=== PATIENT | male | born 1935 | race Caucasian/White ===

== ENCOUNTER → 2017-09-06 08:47 | Outpatient (CLI) | payer MEDICARE, OTHER, SELFPAY ==
--- NOTE | 2017-09-06 09:05 | RDU_ITS ---
Reason For Study: HYPERTENSION Right Renal Artery Left Renal Artery Right renal artery ostium Left renal artery ostium 186.0/33.0 214.0/35.4 RSV/EDV. PSV/EDV. Right renal artery proximal Left renal artery proximal PSV/EDV 200.0/44.0 PSV/EDV. 230.0/35.4 . Right renal artery mid 213.0/36.7 Left renal artery mid 200.0/36.7 PSV/EDV. PSV/EDV . Right renal artery distal Left renal artery distal 158.0/23.2 155.0/30.6 PSV/EDV. PSV/EDV. Right RAR 2.3. Left RAR 2.4. No turbulence noted. No turbulence noted. Right Renal Parenchyma Left Renal Parenchyma Upper Pole Medula 38.5/7.9 PSV/EDV. Left upper pole medulla 32.7/6.4 Right upper pole medulla EDR .21 . PSV/EDV . Right upper pole medulla R.I. .79 . Left upper pole medulla EDR .20 . Upper [employer] Cortx 24.4/6.1 PSV/EDV. Left upper pole medulla R.I. .80 . Right upper pole cortex EDR .25 . UP Cortex 27.2/7.6 PSV/EDV. Right upper pole cortex R.I. .75 . Left upper pole cortex EDR .28 . Right lower Pole medulla 33.0/7.9 Left upper pole cortex R.I. .72 . PSV/EDV . Left lower Pole medulla 33.0/8.3 Right lower pole medulla EDR .24 . PSV/EDV . Right lower pole medulla R.I. .76 . Left lower pole medulla EDR .25 . Lower Pole Cortex 18.9/5.8 PSV/EDV. Left lower pole medulla R.I. .75 . Right lower pole cortex EDR .31 . Lower Pole Cortx 35.1/7.6 PSV/EDV. Right lower pole cortex R.I. .69 . Left lower pole cortex EDR .22 . Right Renal Hilar Left lower pole cortex R.I. .78 . Right Hilar avg 41.3/8.3 PSV/EDV. Left Renal Hilar Right hilar acceleration time 66 LT Hilar avg 58.8/13.2 PSV/EDV . m/sec. Left hilar acceleration time 59 Right Renal Dimensions m/sec. Right kidney size 11.0 cm . Left Renal Dimensions Right cortical dimension 1.5 cm . Left kidney size 11.0 cm . Left cortical dimension 1.5 cm . Hypoechoic structure noted lt kidney measuring 2.1 x 2.1 cm. Aorta Proximal abdominal aorta 1.8 X 1.7 cm . Distal abdominal aorta 1.8 X 1.8 cm . Proximal abdominal aorta peak systolic velocity is 93.9 cm/sec . Distal abdominal aorta peak systolic velocity is 79.3 cm/sec . Interpretation Summary Dimensions of the intra-abdominal aorta appear normal, without evidence of aneurysmal dilatation. Right renal artery velocities are elevated. Left renal artery velocities are elevated. Acceleration times are normal bilaterally. Renal-aortic ratios are also bilaterally normal. No turbulent flow is noted in the renal arteries bilaterally. There is evidence of mild renal artery stenosis bilaterally, which does not appear to be hemodynamically significant. Renovascular resistance appears to be bilaterally elevated . Cortical dimensions are bilaterally normal. Kidneys appear normal in size bilaterally. A hypoechoic structure is noted in the left kidney, measuring 2.1 cm x 2.1 cm. This may represent a renal cyst. Clinical correlation is advised. Ordering Physician: Alison Aguirre Referring Physician: Alison Aguirre Performed By: Yari Hemphill RVT
== END ==
PROVIDERS: Family Provider Internal Medicine; PCP Internal Medicine; Visit Provider Internal Medicine
DX: I73.9 Peripheral vascular disease, unspecified (principal); I11.9 Hypertensive heart disease without heart failure
CPT/HCPCS: 93975

== ENCOUNTER → 2017-10-10 20:22 | Outpatient (CLI) | payer MEDICARE, OTHER, SELFPAY | PROVIDERS: Family Provider Internal Medicine; PCP Internal Medicine; Visit Provider Clinical Nurse Specialist Acute Care | DX: G47.33 Obstructive sleep apnea (adult) (pediatric) (principal) | CPT/HCPCS: 95811 ==

== ENCOUNTER → 2018-03-24 10:05 | Outpatient (CLI) | payer MEDICARE, OTHER, SELFPAY ==
--- NOTE | 2018-03-24 10:10 | RAD_ITS ---
STUDY: X-RAY - RIGHT KNEE REASON FOR EXAM: Male, 82 years old. Pain. TECHNIQUE: 4 view(s) of the knee. COMPARISON: None. FINDINGS: Normal visualized distal femur. Normal visualized proximal tibia and fibula. Normal proximal tibiofibular articulation. Normal medial femorotibial compartment. Normal lateral femorotibial compartment. There is moderate degenerative arthrosis of the patellofemoral articulation. 2 The soft tissue structures are unremarkable. RAD/Knee 4 or More Views IMPRESSION: Mild degenerative changes. No demonstrated fracture, dislocation, or destructive osseous lesion. Electronically Signed: Thanh Segal MD at 4:02 EST , Service support ,
== END ==
PROVIDERS: Family Provider Internal Medicine; PCP Internal Medicine; Referring Provider Internal Medicine; Visit Provider Internal Medicine
DX: M17.11 Unilateral primary osteoarthritis, right knee (principal)
CPT/HCPCS: 73564

== ENCOUNTER → 2018-03-27 10:32 | Outpatient (CLI) | payer MEDICARE, OTHER, SELFPAY | PROVIDERS: Family Provider Internal Medicine; PCP Internal Medicine; Referring Provider Nurse Practitioner Adult Health; Visit Provider Nurse Practitioner Adult Health | DX: R97.20 Elevated prostate specific antigen [PSA] (principal) | CPT/HCPCS: 36415; 84153 ==

== ENCOUNTER → 2018-06-26 12:47 | Outpatient (CLI) | payer MEDICARE, OTHER, SELFPAY ==
[2018-01-04 09:35] VITALS: BMI 32.1
--- NOTE | 2018-06-26 15:26 | PFTCOMP ---
COMPLETE PULMONARY FUNCTION TEST INTERPRETATION Brief HPI: Patient is an 82 year old male, currently under the care of myself, who presents to [facility] for complete pulmonary function tests secondary to diagnosis of COPD. Respiratory therapist reports good effort and reproducible results. Interpretation: Forced expiration spirometry shows a mild large airways obstructive ventilatory defect with an FEV1 of 87% predicted. There is no significant bronchodilator response by strict ATS criteria. Spirograms are of good quality and plateau slowly, indicating slowly emptying areas of the lungs. The respiratory flow volume loop shows decreased expiratory flow rates at high lung volumes consistent with small airways obstruction. Lung volumes by body plethysmography show a normal total lung capacity at 6.09 L, 96% predicted. All other lung volumes are within normal limits. Diffusion capacity by carbon monoxide is normal at 101% predicted. The airway resistance is elevated. Compared to previous pulmonary function tests from 06/09/2015, there has been no significant change. Impression: Relatively normal pulmonary function testing. There does appear to be a significant improvement in mid flows with bronchodilators, but this does not reach clinical significance by ATS criteria.
--- NOTE | 2018-06-26 15:29 | PFTCOMP_ITS ---
COMPLETE PULMONARY FUNCTION TEST INTERPRETATION Brief HPI: Patient is an 82 year old male, currently under the care of myself, who presents to [facility] for complete pulmonary function tests secondary to diagnosis of COPD. Respiratory therapist reports good effort and reproducible results. Interpretation: Forced expiration spirometry shows a mild large airways obstructive ventilatory defect with an FEV1 of 87% predicted. There is no significant bronchodilator response by strict ATS criteria. Spirograms are of good quality and plateau slowly, indicating slowly emptying areas of the lungs. The respiratory flow volume loop shows decreased expiratory flow rates at high lung volumes consistent with small airways obstruction. Lung volumes by body plethysmography show a normal total lung capacity at 6.09 L, 96% predicted. All other lung volumes are within normal limits. Diffusion capacity by carbon monoxide is normal at 101% predicted. The airway resistance is elevated. Compared to previous pulmonary function tests from 06/09/2015, there has been no significant change. Impression: Relatively normal pulmonary function testing. There does appear to be a significant improvement in mid flows with bronchodilators, but this does not re ach clinical significance by ATS criteria.
== END ==
PROVIDERS: Family Provider Internal Medicine; PCP Internal Medicine; Referring Provider Internal Medicine Critical Care Medicine; Visit Provider Internal Medicine Critical Care Medicine
DX: J44.9 Chronic obstructive pulmonary disease, unspecified (principal)
CPT/HCPCS: 94060; 94726; 94729

== ENCOUNTER 2018-07-10 09:30 | Outpatient (RCR) | payer MEDICARE, OTHER, SELFPAY ==
--- NOTE | 2018-06-02 07:56 | HP.PTEVAL_ITS ---
Patient's Visit Information AMANDA SHEEHAN is a 82 year old M referred to Physical Therapy by Alison Aguirre DO with a diagnosis of L knee OA. Date of Evaluation: 06/02/18 Physical Therapist: Walter Mckenzie DPT, OCS, CSCS - Visit Plan Frequency: 1x/Week Duration: 4-6 Weeks Plan: weekly x 4-6 to progress HEP for L knee OA: gave HS, quad, gastroc stretches, activity mod and nondamaging knee ROM today. next session NWB strength hip and knee and then progress to wB as tolerated. - Subjective Findings: L knee pain and stiffness that would make him cry. Had stem cell injections on Apr 25 and that bad pain left. Walking better but still needs cane due to medial sharp pain that makes him double up. It is stiff and he exercises with leg lifts at night and keeps it moving. No history of trauma in L knee but worked on concrete for years. 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 Worse when on it alot. Sleep is OK now but it was problematic prior to the injection especially with extension. Not employed. Can do basic aDLs abut painful at times. Uses cane since last 5 weeks due to pain. No falls. Injections helped 75%. - Pain L medial knee Pain Intensity (Out of 10): 0 Pain Intensity Range: 0, 7 Comment: 10 prior to injection. - Objective Walks with cane today I without antalgia, I without AD more antalgia. trasnfers I. Steps are reciprocal with railing and no increased pain ascending or descending today. L knee AROM 0-115 adn R knee is 0-128. HS and quad max tight, iTB mod tight, gastroc max tight to 0 DF. Patella stiff on L and painful to palpation medially under knee cap. reflexes 2/3 patella ezekiel chilles. Sensation in LE WNL to gross light touch. Strength LE ankles 5/5, L knee 4- ext adn 4 felxion with hesitation due to pain. R knee 5/5. Hips are 4- in rotations and abd/ext adn 4 in flexion R and 4- L. - Balance Scores Functional Gait Assessment Score: 26 % Disability: 13.3400 - Goals Goal 1:: patient feel 90% better overall and be I in approp ex to minimize future problems. Goal Time Frame: 4-6 Weeks Goal 2:: Patient have 0 instances of catching sharp pain in L knee that reequires use of cane. Goal Time Frame: 4-6 Weeks Goal 3:: Maintain abiliity to sleep at night without waking. 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 For Medicare and Medicare HMO plans, please review the plan of care and approve it. It will need to be FAXED BACK to us at [phone] for Medicare purposes. For Medicare only, by signing this I certify the plan of care. Please let me know if there are questions or concerns regarding this plan of care. Physician Signature: Dat e:
--- NOTE | 2018-07-10 09:47 | HP.PTDCSUM ---
HP - PT D/C Summary It has been my pleasure to treat AMANDA SHEEHAN under orders from Alison Aguirre DO, for the diagnosis of L knee OA for a total of 4 visit(s). Discharge Date: 07/10/18 Please see the following information for a summary of their discharge status. - Subjective Subjective: Dizzyness gone. Doing all exercises and limits WB exercises to 5-6 reps. Only problem is slight pain medial knee. Pain gets to 2/10 at times if walks alot. Saw doctor Tuesday and did not say much. Carries cane sometimes in case it starts to hurt but doing that less and less. - Pain L medial knee Pain Intensity (Out of 10): 0 - Overall Improvement % Improvement: 85 - Objective Objective/Function: Good 5/5 strength in knees adn Functional ROM. Patient happy with progress adn willing to continue on his own. - Goals Goal 1:: patient feel 90% better overall and be I in approp ex to minimize future problems. Goal Progress: Progressing Goal 2:: Patient have 0 instances of catching sharp pain in L knee that reequires use of cane. Goal Progress: Goal Met Goal 3:: Maintain abiliity to sleep at night without waking. Goal Progress: Goal Met Goal 4:: <50% disability on LEFS Goal Progress: 50%, 20% improved. - Plan Plan: D/C to HEP - D/C Information Discharge Comments: Doing well and will continue at home via HEP. Will contact doctor if pain worsens again. If there are questions or concerns regarding this patient's physical therapy, please feel free to call me at [phone]. Thank you for the referral of this patient. Sincerely, Walter Mckenzie, DPT, OCS, CSCS
== END 2018-07-10 19:00 | disposition home or self-care (01) ==
LOC: PT 09:30
PROVIDERS: Family Provider Internal Medicine; PCP Internal Medicine; Referring Provider Internal Medicine; Visit Provider Internal Medicine
DX: M17.12 Unilateral primary osteoarthritis, left knee (principal)
CPT/HCPCS: 97110; 97162; 97530

== ENCOUNTER → 2018-07-26 09:42 | Outpatient (CLI) | payer MEDICARE, OTHER, SELFPAY ==
[2018-07-05 09:01] VITALS: BMI 31.5
--- NOTE | 2018-07-26 09:53 | CT_ITS ---
STUDY: CTA OF THE BRAIN REASON FOR EXAM: Male, 82 years old. Vision loss. History of prior cerebral aneurysm repair. RADIATION DOSAGE (If Supplied By Facility): CTDIvol = ( 29.87 ) mGy, DLP = ( 1571.72 ) mGycm TECHNIQUE: CT angiography was performed with a multi-detector CT scanner. Data acquisition was obtained from the skull base through the vertex following intravenous administration of 100 IV Isovue 370. MIP images were reconstructed from the axial data set. Post-processing of the angiographic images was performed, with multiplanar reformation and 3D reconstruction. Individualized dose optimization techniques were used for this CT. COMPARISON: None. FINDINGS: A vascular/aneurysmal clip is seen in the left side of the [place]. The patient is status post left temporal parietal craniotomy. Normal bilateral petrous carotid arteries. There is calcified plaque formation of the right cavernous carotid artery, without a cross-sectional luminal stenosis. There is calcified plaque formation of the left cavernous carotid artery, without a cross-sectional luminal stenosis. Normal right A1 segments of the anterior cerebral artery. Normal left A1 segments of the anterior cerebral artery. Normal intact anterior communicating artery (ACOM). Normal bilateral A2 segments of the anterior cerebral arteries. Normal right M1 and M2 segments of the middle cerebral arteries, with a normal M1 bifurcation. Aneurysmal clip is seen at the level of the M2 branch of the left middle cerebral artery. There is attenuation of the middle cerebral artery branches in the region of the left sylvian fissure. This most likely is postoperative in nature. No recurrent aneurysm is seen. Normal right posterior communicating artery (PCOM). Normal left posterior communicating artery (PCOM). Normal bilateral vertebral arteries. Normal basilar artery with a normal basilar bifurcation. The visualized bilateral superior cerebellar (SCA) arteries are normal. Normal bilateral P1, P2 and visualized P3 segments of the posterior cerebral arteries. There is no demonstrated aneurysm of the [place]. Cerebral atrophy. A aneurysmal clip is seen in the [place] on the left side. 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 No acute abnormality is seen. Electronically Signed: Daniel Lott, at 10:53 EDT , Service support , STUDY: CTA NECK WITH CONTRAST REASON FOR EXAM: Male, 82 years old. Visual loss. RADIATION DOSAGE (If Supplied By Facility): CTDIvol = ( 29.87 ) mGy, DLP = ( 1571.72 ) mGycm TECHNIQUE: CT angiography with multi-detector data acquisition was performed from the aortic arch to the skull base following intravenous administration of 100 IV Isovue 370. MIP images were reconstructed from the axial data set. Post-processing of the angiographic images was performed, with multiplanar reformation and 3D reconstruction. Individualized dose optimization techniques were used for this CT. COMPARISON: None. FINDINGS: AORTIC ARCH: There is atherosclerotic calcific plaque formation of the aortic arch and great vessels arising from the aortic arch, without a hemodynamically significant stenosis. There is a normal origin of the brachiocephalic, left common carotid, and left subclavian arteries. RIGHT CAROTID ARTERIES: There is atherosclerotic plaque formation of the common carotid artery, but without a hemodynamically significant stenosis. Normal right common carotid bulb. There is mild atherosclerotic plaque formation of the origin of the right internal carotid artery with less than 50% cross sectional diameter stenosis. Normal visualized cervical portion of the right internal carotid artery. Normal origin of the right external carotid artery (ECA). LEFT CAROTID ARTERIES: There is atherosclerotic plaque formation of the common carotid artery, but without a hemodynamically significant stenosis. Normal left common carotid bulb. There is extensive atherosclerotic plaque formation of the origin of the left internal carotid artery with an estimated stenosis of greater than 70%. Normal visualized cervical portion of the left internal carotid artery. Normal origin of the left external carotid artery (ECA). VERTEBRAL ARTERIES: Normal bilateral vertebral arteries. 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 Electronically Signed: Daniel Lott, at 10:56 EDT , Service support ,
--- NOTE | 2018-07-26 09:53 | CT_ITS ---
STUDY: CTA OF THE BRAIN REASON FOR EXAM: Male, 82 years old. Vision loss. History of prior cerebral aneurysm repair. RADIATION DOSAGE (If Supplied By Facility): CTDIvol = ( 29.87 ) mGy, DLP = ( 1571.72 ) mGycm TECHNIQUE: CT angiography was performed with a multi-detector CT scanner. Data acquisition was obtained from the skull base through the vertex following intravenous administration of 100 IV Isovue 370. MIP images were reconstructed from the axial data set. Post-processing of the angiographic images was performed, with multiplanar reformation and 3D reconstruction. Individualized dose optimization techniques were used for this CT. COMPARISON: None. FINDINGS: A vascular/aneurysmal clip is seen in the left side of the [place]. The patient is status post left temporal parietal craniotomy. Normal bilateral petrous carotid arteries. There is calcified plaque formation of the right cavernous carotid artery, without a cross-sectional luminal stenosis. There is calcified plaque formation of the left cavernous carotid artery, without a cross-sectional luminal stenosis. Normal right A1 segments of the anterior cerebral artery. Normal left A1 segments of the anterior cerebral artery. Normal intact anterior communicating artery (ACOM). Normal bilateral A2 segments of the anterior cerebral arteries. Normal right M1 and M2 segments of the middle cerebral arteries, with a normal M1 bifurcation. Aneurysmal clip is seen at the level of the M2 branch of the left middle cerebral artery. There is attenuation of the middle cerebral artery branches in the region of the left sylvian fissure. This most likely is postoperative in nature. No recurrent aneurysm is seen. Normal right posterior communicating artery (PCOM). Normal left posterior communicating artery (PCOM). Normal bilateral vertebral arteries. Normal basilar artery with a normal basilar bifurcation. The visualized bilateral superior cerebellar (SCA) arteries are normal. Normal bilateral P1, P2 and visualized P3 segments of the posterior cerebral arteries. There is no demonstrated aneurysm of the [place]. Cerebral atrophy. A aneurysmal clip is seen in the [place] on the left side. 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 No acute abnormality is seen. Electronically Signed: Daniel Lott, at 10:53 EDT , Service support , STUDY: CTA NECK WITH CONTRAST REASON FOR EXAM: Male, 82 years old. Visual loss. RADIATION DOSAGE (If Supplied By Facility): CTDIvol = ( 29.87 ) mGy, DLP = ( 1571.72 ) mGycm TECHNIQUE: CT angiography with multi-detector data acquisition was performed from the aortic arch to the skull base following intravenous administration of 100 IV Isovue 370. MIP images were reconstructed from the axial data set. Post-processing of the angiographic images was performed, with multiplanar reformation and 3D reconstruction. Individualized dose optimization techniques were used for this CT. COMPARISON: None. FINDINGS: AORTIC ARCH: There is atherosclerotic calcific plaque formation of the aortic arch and great vessels arising from the aortic arch, without a hemodynamically significant stenosis. There is a normal origin of the brachiocephalic, left common carotid, and left subclavian arteries. RIGHT CAROTID ARTERIES: There is atherosclerotic plaque formation of the common carotid artery, but without a hemodynamically significant stenosis. Normal right common carotid bulb. There is mild atherosclerotic plaque formation of the origin of the right internal carotid artery with less than 50% cross sectional diameter stenosis. Normal visualized cervical portion of the right internal carotid artery. Normal origin of the right external carotid artery (ECA). LEFT CAROTID ARTERIES: There is atherosclerotic plaque formation of the common carotid artery, but without a hemodynamically significant stenosis. Normal left common carotid bulb. There is extensive atherosclerotic plaque formation of the origin of the left internal carotid artery with an estimated stenosis of greater than 70%. Normal visualized cervical portion of the left internal carotid artery. Normal origin of the left external carotid artery (ECA). VERTEBRAL ARTERIES: Normal bilateral vertebral arteries. 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 Electronically Signed: Daniel Lott, at 10:56 EDT , Service support ,
[2018-07-26 10:10] LABS: CREATININE FINGERSTICK 1.5 mg/dL (0.70-1.30)
[2018-07-26 10:26] LABS: Absolute Lymphocyte Count 1.12 X10^3/ul (0.83-4.51); Absolute Neutrophil Count 4.1 X10^3/uL (2.0-7.7); Basophil# 0.04 X10^3/uL; Basophil% 0.6 % (0-1); Eosinophil# 0.34 X10^3/uL; Eosinophils% 5.4 % (0-5); Hemoglobin 13.1 g/dl (13.0-16.5); Lymphocyte # 1.12 X10^3/ul (4.0); Lymphocyte % 17.7 % (19-41); Mean Corp Hgb Conc 34.5 g/gl (32-36); Mean Corpuscular Hgb 28.8 pg (27.0-32.0); Mean Corpuscular Volume 83.5 fL (80-94); Mean Platelet Vol. 8.9 fl (6.2-12.0); Monocyte# 0.75 X10^3/uL; Monocyte% 11.9 % (0-10); Neutrophil # 4.05 X10^3/uL (2.7-7.7); Neutrophil % 64.1 % (47-70); Platelet Count 236 K/mm3 (150-450); RBC Distribution Width CV 14.5 % (11.6-14.6); RBC Distribution Width SD 43.1 fl (35.1-43.9); Red Blood Count 4.55 M/mm3 (4.6-6.2); White Blood Count 6.3 K/mm3 (4.4-11.0)
[2018-07-26 10:28] LABS: POSITIVE COUNT NO; POSITIVE DIFFERENTIAL NO; POSITIVE MORPHOLOGY NO
[2018-07-26 10:47] LABS: ALB/GLOB Ratio 1.1 RATIO (0.9-2.4); AST(SGOT) 34 U/L (15-37); Alanine Aminotransfer ALT/SGPT 44 U/L (16-61); Albumin, Serum 3.9 g/dL (3.2-5.0); Alkaline Phosphatase 80 U/L (45-117); Anion Gap 5 (5-15); BUN 24 mg/dL (7-18); BUN/Creat Ratio 19.8 RATIO (10-20); Calcium,Total 8.9 mg/dL (8.5-10.1); Chloride 104 mmol/L (98-107); Creatinine, Serum 1.21 mg/dL (0.70-1.30); EST Glomerular Filtration Rate 61 mL/min (>60); Est Glom Filt Rate - Afr Amer 74 mL/min (>60); Ferritin 69 ng/mL (26-388); Globulin 3.4 g/dL (2.2-4.2); Glucose 105 mg/dL (74-106); Iron 69 ug/dL (65-175); Iron Binding Capacity,Total 276 ug/dL (250-450); Protein, Total 7.3 g/dL (6.4-8.2); Sodium Level 139 mmol/L (136-145); Thyroid Stim Hormone (TSH) 1.47 uIU/mL (0.358-3.74); Vitamin B12 642 pg/mL (211-911)
== END ==
PROVIDERS: Family Provider Internal Medicine; PCP Internal Medicine; Referring Provider Internal Medicine; Visit Provider Internal Medicine
DX: H54.7 Unspecified visual loss (principal); R53.83 Other fatigue; Z86.39 Personal history of other endocrine, nutritional and metabolic disease
CPT/HCPCS: 70496; 70498; 80053; 82607; 82728; 83540; 83550; 84443; 85025; Q9967

== ENCOUNTER → 2018-07-29 07:01 | Outpatient (CLI) | payer MEDICARE, OTHER, SELFPAY ==
[2018-07-05 09:01] VITALS: BMI 31.5
[2018-07-29 08:26] LABS: Erythrocyte Sedimentation Rate 7 mm/hr (0-20)
== END ==
PROVIDERS: Family Provider Internal Medicine; PCP Internal Medicine; Referring Provider Ophthalmology; Visit Provider Ophthalmology
DX: G45.3 Amaurosis fugax (principal)
CPT/HCPCS: 36415; 85652; 86140

== ENCOUNTER → 2018-08-10 13:52 | Outpatient (CLI) | payer MEDICARE, OTHER, SELFPAY ==
[2018-07-05 09:01] VITALS: BMI 31.5
--- NOTE | 2018-08-10 13:59 | ECHOD_ITS ---
Reason For Study: VISION LOSS Procedure This was a 2D Doppler, Color Flow transthoracic echocardiogram. Exam performed in department. Left Ventricle Normal size and thickness. Left ventricular systolic function is normal. The estimated ejection fraction is 60 %. Normal diastology for age. No regional wall motion abnormalities noted. Right Ventricle Normal RV size. Normal systolic function. Atria Normal left atrium. Normal right atrium. No doppler evidence for ASD. Bubble contrast study negative for right to left interatrial shunt. Mitral Valve There is mild mitral annular calcification. There is no mitral valve stenosis. Mild (1+) mitral valve insufficiency. Tricuspid Valve There is no tricuspid stenosis. Mild tricuspid valve insufficiency. Pulmonary artery systolic pressure is 35 mmHg. Aortic Valve Aortic sclerosis, no stenosis. There is no aortic stenosis. No aortic valve insufficiency. Pulmonic Valve There is no pulmonic valvular stenosis. Trivial pulmonic valve insufficiency. Great Vessels Normal aortic root. Pericardium/Pleural No pericardial effusion. Medication 22 gauge I.V. with prn adaptor inserted into right arm. Performed a rapid injection of agitated mix of 9 cc saline and 1cc air to assess for atrial septal defect. MMode/2D Measurements & Calculations LVIDd: 5.0 cm IVSd: 1.1 cm Ao root diam: 3.4 cm LVIDs: 3.5 cm LVPWd: 1.2 cm RVDd: 3.8 cm FS: 30.6 % LAV(MOD-bp): 48.9 ml LVAd ap4: 37.6 cm2 SV(MOD-sp4): 73.0 ml LAV(MOD-bp) Indexed: 22.5 ml/m2 EDV(MOD-sp4): 130.8 ml LAV(MOD-sp2): 44.6 ml EDV(sp4-el): 134.3 ml LAV(MOD-sp4): 49.9 ml LVAs ap4: 22.4 cm2 ESV(MOD-sp4): 57.7 ml ESV(sp4-el): 57.6 ml EF(MOD-sp4): 55.8 % EF(sp4-el): 57.1 % SV(sp4-el): 76.7 ml LA A4 area: 17.4 cm2 LA dimension(2D): 4.2 cm RA A4 area: 13.3 cm2 Time Measurements MV dec time: 0.24 sec Doppler Measurements & Calculations MV E max jake: 76.1 cm/sec Lat Peak E' Jake: 6.9 cm/sec Med Peak E' Jake: 6.5 cm/sec MV A max jake: 96.9 cm/sec E/E' lat: 11.0 E/E' med: 11.8 MV E/A: 0.79 Ao V2 max: 136.7 cm/sec LV V1 max: 107.6 cm/sec PA V2 max: 91.3 cm/sec Ao max P.5 mmHg LV V1 max P.6 mmHg PI end-d jake: 61.8 cm/sec TR max jake: 299.0 cm/sec TR max P.8 mmHg Interpretation Summary Left ventricular systolic function is normal. The estimated ejection fraction is 60 %. Normal diastology for age. No doppler evidence for ASD. Bubble contrast study negative for right to left interatrial shunt. Mild (1+) mitral valve insufficiency. Ordering Physician: Alison Aguirre Referring Physician: Alison Aguirre Performed By: Nilam Tillman, RDCS, RVT
== END ==
PROVIDERS: Family Provider Internal Medicine; PCP Internal Medicine; Referring Provider Internal Medicine; Visit Provider Internal Medicine
DX: H54.7 Unspecified visual loss (principal); R94.31 Abnormal electrocardiogram [ECG] [EKG]
CPT/HCPCS: 93306; A4216

== ENCOUNTER → 2019-01-15 20:00 | Outpatient (CLI) | payer MEDICARE, OTHER, SELFPAY ==
[2018-12-19 06:02] VITALS: BMI 31.2
== END ==
PROVIDERS: Family Provider Internal Medicine; PCP Internal Medicine; Referring Provider Internal Medicine Critical Care Medicine; Visit Provider Internal Medicine Critical Care Medicine
DX: G47.33 Obstructive sleep apnea (adult) (pediatric) (principal)
CPT/HCPCS: 95811

== ENCOUNTER → 2019-10-10 09:27 | Outpatient (CLI) | payer MEDICARE, OTHER, SELFPAY ==
[2019-09-12 09:20] VITALS: BMI 31.0
--- NOTE | 2019-10-11 12:05 | PFT ---
INTRODUCTION: The patient is an 84-year-old male that presents for pulmonary function studies secondary to a diagnosis of COPD. Respiratory therapy reports good patient effort. Bronchodilators were used during testing. INTERPRETATION: Forced expiration spirometry demonstrates no evidence of a large airways obstructive ventilatory defect. Although technically there was no significant response to aerosolized bronchodilators, the patient did have a rather robust mid flow response. Spirograms are of good quality and plateau gradually. Body plethysmography was performed and reveals lung volumes to be within normal limits. Diffusing capacity by single breath CO is also within normal limits. When compared to previous pulmonary function studies from June 2018, there has been a 21% reduction in DLCO. IMPRESSION: Grossly normal pulmonary function studies. There has been a reduction in DLCO since 2019, as noted above.
== END ==
PROVIDERS: PCP Internal Medicine; Referring Provider Nurse Practitioner Acute Care; Visit Provider Nurse Practitioner Acute Care
DX: J44.9 Chronic obstructive pulmonary disease, unspecified (principal)
CPT/HCPCS: 94060; 94726; 94729

== ENCOUNTER → 2019-10-19 10:21 | Outpatient (CLI) | payer MEDICARE, OTHER, SELFPAY ==
[2019-09-12 09:20] VITALS: BMI 31.0
[2019-10-19 11:51] VITALS: PULSE 69; PULSE 72; PULSE 77; PULSE 79; PULSE 80; PULSE 82; PULSE 96; O2SAT 93; O2SAT 94; O2SAT 95; O2SAT 96; O2SAT 97
--- NOTE | 2019-10-19 13:09 | WT_ITS ---
PSN 6 Minute Walk Test - 6 Minute Walk Test 6 Minute Walk Test: 6 Minute Walk Test PSN:6-Minute Walk Test Start: 10/19/19 11:51 Freq: Status: Active Protocol: [id number].[id number] Document 10/19/19 11:51 [facility] (Rec: 10/19/19 11:55 [facility] [id number]) 6 Minute Walk Test Date Performed 10/19/19 Time Performed 10:30 Height 5 ft 9 in Weight: 99.337 kg Weight in Pounds 219.[address]: Jennifer Francois Assistive device used: None Pre-test Oxygen Delivery Method Room Air Pulse Ox (%) 95 Pulse Rate (60-100 beats/min) 96 Dyspnea Ceci Scale (0-10) 1 1st minute Oxygen Delivery Method Room Air Pulse Ox (%) 94 Pulse Rate (60-100 beats/min) 72 Dyspnea Ceci Scale (0-10) 1 Number of Rests Taken 0 2nd minute Oxygen Delivery Method Room Air Pulse Ox (%) 93 Pulse Rate (60-100 beats/min) 77 Dyspnea Ceci Scale (0-10) 2 Number of Rests Taken 0 3rd minute Oxygen Delivery Method Room Air Pulse Ox (%) 94 Pulse Rate (60-100 beats/min) 79 Dyspnea Ceci Scale (0-10) 2 Number of Rests Taken 0 4th minute Oxygen Delivery Method Room Air Pulse Ox (%) 94 Pulse Rate (60-100 beats/min) 82 Dyspnea Ceci Scale (0-10) 3 Number of Rests Taken 0 Reported Symptoms Increased Work of Breathing 5th minute Oxygen Delivery Method Room Air Pulse Ox (%) 95 Pulse Rate (60-100 beats/min) 80 Dyspnea Ceci Scale (0-10) 3 Number of Rests Taken 0 Reported Symptoms Increased Work of Breathing 6th minute Oxygen Delivery Method Room Air Pulse Ox (%) 96 Pulse Rate (60-100 beats/min) 82 Dyspnea Ceci Scale (0-10) 3 Number of Rests Taken 0 Reported Symptoms Increased Work of Breathing Post-test Oxygen Delivery Method Room Air Pulse Ox (%) 97 Pulse Rate (60-100 beats/min) 69 Dyspnea Ceci Scale (0-10) 0 Full Laps Walked 14 Partial Lap, Number of Tiles Walked 26 Total Distance Walked (ft) 852 - Interpretation Interpretation: The patient was able to ambulate 852 feet over the course of 6 minutes on room air with no assistive devices or breaks. The patient experienced no significant desaturation or tachycardia during testing. These findings are consistent with a musculoskeletal limitation exercise tolerance. - Recommendations Recommendations: No supplemental oxygen is indicated at this time.
== END ==
PROVIDERS: PCP Internal Medicine; Referring Provider Nurse Practitioner Acute Care; Visit Provider Nurse Practitioner Acute Care
DX: J44.9 Chronic obstructive pulmonary disease, unspecified (principal)
CPT/HCPCS: 94618

== ENCOUNTER → 2020-02-11 20:02 | Outpatient (CLI) | payer MEDICARE, OTHER, SELFPAY ==
[2019-11-05 10:40] VITALS: BMI 32.1
== END ==
PROVIDERS: PCP Internal Medicine; Referring Provider Psychiatry & Neurology Sleep Medicine; Visit Provider Psychiatry & Neurology Sleep Medicine
DX: G47.31 Primary central sleep apnea (principal)
CPT/HCPCS: 95811

== ENCOUNTER → 2020-04-03 11:22 | Outpatient (CLI) | payer MEDICARE, OTHER, SELFPAY ==
[2019-11-05 10:40] VITALS: BMI 32.1
[2020-04-03 12:32] LABS: PSA,Total- Diagnostic 2.18 ng/mL (0.0-4.0)
== END ==
PROVIDERS: PCP Internal Medicine; Referring Provider Nurse Practitioner Adult Health; Visit Provider Nurse Practitioner Adult Health
DX: R97.20 Elevated prostate specific antigen [PSA] (principal)
CPT/HCPCS: 36415; 84153

== ENCOUNTER → 2020-09-11 12:53 | Outpatient (CLI) | payer MEDICARE, OTHER, SELFPAY ==
[2020-07-08 09:21] VITALS: BMI 34.0
--- NOTE | 2020-09-11 13:04 | CT_ITS ---
STUDY: CT ABDOMEN AND PELVIS WITHOUT CONTRAST REASON FOR EXAM: Male, 85 years old. KIDNEY STONE PROTOCOL. Back pain. RADIATION DOSAGE (If Supplied By Facility): CTDIvol = ( 16.20 ) mGy, DLP = ( 865.89 ) mGycm TECHNIQUE: Transaxial images were obtained from the dome of the diaphragm to the symphysis pubis without oral contrast, and without intravenous contrast. Sagittal and coronal images were reconstructed. Individualized dose optimization techniques were used for this CT. COMPARISON: Comparison is made with prior study dated 04/01/2014. FINDINGS: The visualized lung bases are unremarkable. The visualized portions of the heart are within normal limits. There is decreased attenuation of the liver consistent with steatosis. Scattered small cysts are once again seen in the liver. There are surgical clips in the gallbladder fossa consistent with a prior cholecystectomy. Normal spleen. Normal pancreas. Normal bilateral adrenal glands. Normal right kidney. Stable 2 cm cyst in the medial inferior pole of the left kidney. Normal visualized stomach. Normal small intestine. There are scattered colonic diverticula consistent with diverticulosis. The appendix is visualized and appears normal. There is diffuse atherosclerotic calcification of the abdominal aorta and its major visceral branches, without a demonstrated aneurysm. Normal inferior vena cava. Normal retroperitoneum. I suspect a 1.5 cm polypoid lesion at the base of the bladder on the right side. There is enlargement of the prostate gland. It measures 4.3 cm x 4.8 cm. This causes indentation of the bladder base. Prostatic calcification. Normal abdominal wall. There are degenerative changes of the visualized lumbar spine. CT/Abdomen/Pelvis without Cont IMPRESSION: Prostatic enlargement with indentation of the bladder base. Possible 1.5 cm polypoid abnormality at the base of the bladder on the right side. Scattered sigmoid diverticula. Stable left renal cyst as well as hepatic cysts. Electronically Signed: Daniel Lott MD at 13:48 EDT , Service support ,
== END ==
PROVIDERS: PCP Internal Medicine; Referring Provider Internal Medicine; Visit Provider Internal Medicine
DX: Z78.9 Other specified health status (principal)
CPT/HCPCS: 74176

== ENCOUNTER 2020-10-29 09:41 | Day surgery (SDC) | payer MEDICARE, OTHER, SELFPAY ==
[2020-07-08 09:21] VITALS: BMI 34.0
--- NOTE | 2020-10-23 09:21 | EKG12_ITS ---
Test Reason : OP EKG Blood Pressure : / mmHG Vent. Rate : 066 BPM Atrial Rate : 066 BPM P-R Int : 184 ms QRS Dur : 100 ms QT Int : 414 ms P-R-T Axes : 027 -12 023 degrees QTc Int : 434 ms Normal sinus rhythm Normal ECG Confirmed by LYNNETTE HUNT, SACHIN ([id number]), film editor supervisor VESNA VALERA ([id number]) on 10/24/2020 10:14:35 A M Referred By: RAH Confirmed By:BARB CHURCH MD
[2020-10-23 09:46] LABS: Hematocrit 39.2 % (40-54); Hemoglobin 13.8 g/dL (13.0-16.5); Mean Corp Hgb Conc 35.2 g/dL (32-36); Mean Corpuscular Hgb 30.6 pg (27.0-32.0); Mean Corpuscular Volume 86.9 fL (80-94); Mean Platelet Vol. 8.2 fl (6.2-12.0); Platelet Count 244 K/mm3 (150-450); RBC Distribution Width CV 14.5 % (11.6-14.6); RBC Distribution Width SD 46.5 fl (35.1-43.9); Red Blood Count 4.51 M/mm3 (4.6-6.2); White Blood Count 5.8 K/mm3 (4.4-11.0)
[2020-10-23 10:11] LABS: Anion Gap 8 (5-15); BUN 21 mg/dL (7-18); Chloride 98 mmol/L (98-107); EST Glomerular Filtration Rate 76 mL/min (>60); Est Glom Filt Rate - Afr Amer 92 mL/min (>60); Glucose 127 mg/dL (74-106); Potassium 3.6 mmol/L (3.5-5.1); Sodium Level 134 mmol/L (136-145)
--- NOTE | 2020-10-29 | BLB_PTH ---
PATIENT: AMANDA SHEHEAN [place] [facility] [place][id number] AGE/SX: 85/M ROOM: RE10/29/[address]: Dr. Armando Holguin MD : 1935 BED: DIS: 10/29/2020 SPEC #: [id number] RECD: 10/29/20 14:37 STATUS: LUCIE RELiang #: [id number] EVERARDO: 10/29/20 00:[address]: Armando Holguin DEPT: SURGICAL PATHOLOGY RECD BY: Martin Otoole ENTERED: 10/30/20 08:22 SP TYPE: TURB OTHR DR: Dr. Alison Aguirre, DO Tissues: Urinary bladder, NOS Procedures: Surgery Specimen Level V HEADER OPERATION: Cysto, TUR bladder, Olympus, right ureteral stent PRE-OP DIAGNOSIS: Bladder tumor TISSUE SUBMITTED: Bladder pieces MICROSCOPIC DIAGNOSIS Bladder tumor, TUR: Papillary urothelial carcinoma, noninvasive. See cancer summary in the comment section. SJ:liyah 10/31/2020 COMMENT BLADDER CANCER (TUR) SUMMARY Procedure: Transurethral resection of bladder (TURBT) Tumor site: Not identified Histologic type: Papillary urothelial carcinoma, noninvasive Histologic grade: Low grade (1-2/3) Tumor configuration: Papillary Muscularis propria presence: No muscularis propria (detrusor muscle) identified. Lymphvascular invasion: Not identified Tumor extension: Noninvasive papillary carcinoma. Additional pathologic findings: None The above summary is in compliance with [employer] (CAP) Cancer Protocols Checklist and [place] Joint Committee on Cancer (AJCC), Staging Manual, 8th Ed. Case has been reviewed in consultation with Dr. Mccurdy who concurs with the above diagnosis. IDC:AM MICROSCOPIC DESCRIPTION Slides are reviewed. GROSS DESCRIPTION Received in fixative is one container labeled with the patient's name and designated bladder pieces. The specimen consists of multiple irregular fragments of castellanos-light brown soft tissue that in aggregate measure 5 x 3 x 0.3 cm. The specimen is totally submitted in two cassettes. / SOFIA:liyah 10/30/20 TC:0 CPT: 69534
[2020-10-29 10:02] VITALS: BP 154/78; PULSE 63; RESP 16; TEMP 36.2; O2SAT 100; BMI 30.4
[2020-10-29] MEDS: Lactated Ringers 1,000 ML 100 ML IV ×2 (10:17→12:31)
[2020-10-29] MEDS: Cefazolin 2 GM in 0.9% Normal Saline 100 ML IV (11:44)
--- NOTE | 2020-10-29 11:57 | PCM.HP.STD ---
HPI - General HPI Narrative AMANDA SHEEHAN, is a 85 M who presents for resection of bladder tumor [facility] Medical History (Updated 10/29/20 @ 11:[address] Armando Holguin MD) Abdominal pain Abnormal chest CT Atherosclerotic heart disease of zuni coronary artery without angina pectoris Bladder disease BMI 28.0-28.9,adult BPH (benign prostatic hyperplasia) CAD (coronary artery disease) Cancer Chest pain Chronic bronchitis Chronic sinusitis COPD (chronic obstructive pulmonary disease) Diastolic dysfunction Encounter for long-term (current) use of other medications Essential hypertension Fatigue Former smoker Gastric reflux History of echocardiogram History of left heart catheterization (LHC) History of stress test Hypertension IgG deficiency Immunodeficiency disorder Obstructive sleep apnea Palpitations Prostate disease Pure hypercholesterolemia Restless legs Sleep apnea Ventricular tachycardia Wears dentures Wears glasses Home Medications aspirin 81 mg PO DAILY@0800 04/01/14 [History Last Taken 10/22/20] albuterol sulfate 2.5 mg INHALATION BID PRN ml 06/22/17 [History Last Taken Unknown] albuterol sulfate 90 mcg/actuation aerosol inhaler 2 puff INHALATION Q6H PRN 06/22/17 [History Last Taken Unknown] fluticasone propionate 50 mcg/actuation nasal spray,suspension 2 spray INTRANASAL QDAY #16 g 06/22/17 [Rx Last Taken Unknown] losartan 100 mg-hydrochlorothiazide 12.5 mg tablet 1 tab PO QDAY 06/22/17 [History Last Taken 10/29/20] pentoxifylline 400 mg tablet,extended release 400 mg PO DAILY tab 06/22/17 [History Last Taken Unknown] pravastatin 20 mg tablet 20 mg PO DAILY 09/04/18 [History Last Taken Unknown] cholecalciferol (vitamin D3) 125 mcg (5,000 unit) disintegrating tablet 5,000 unit PO DAILY 03/05/19 [History Last Taken Unknown] ropinirole 0.5 mg tablet 1 mg PO DAILY tab 03/27/19 [History Last Taken Unknown] omeprazole 40 mg capsule,delayed release 40 mg PO DAILY 09/12/19 [History Last Taken Unknown] amlodipine 10 mg tablet 10 mg PO DAILY 11/05/19 [History Last Taken Unknown] atenolol 50 mg tablet 100 mg PO DAILY tab 11/05/19 [History Last Taken 10/29/20] tamsulosin 0.4 mg capsule 0.4 mg PO DAILY 90 Days #90 cap 11/05/19 [History Last Taken Unknown] eszopiclone 1 mg tablet 3 mg PO QHS 04/30/20 [History Last Taken Unknown] celecoxib 100 mg capsule 100 mg PO DAILY 07/08/20 [History Last Taken Unknown] Alvesco 1 puff INHALATION DAILY 10/22/20 [History Last Taken Unknown] Anoro Ellipta 1 ea INHALATION DAILY 10/22/20 [History Last Taken 10/29/20] dutasteride [Avodart] 0.5 mg PO DAILY 10/22/20 [History Last Taken Unknown] ciprofloxacin HCl [Cipro] 500 mg PO BID #10 tab 10/29/20 [Rx Last Taken Unknown] Allergy/AdvReac Type Severity Reaction Status Date / Time cocaine Allergy Anaphylaxis Verified 10/29/20 09:59 codeine Allergy Rash Verified 10/29/20 09:59 Penicillins Allergy Swelling Verified 10/29/20 09:59 Family History (Reviewed 07/08/20 @ 09:27 by Jennifer Francois COMMUNICATIONS TECHNOLOGIST, COMMUNICATIONS TECHNOLOGIST-C) Mother Cancer Stomach Brother , 73 Years old Myocardial infarction Father Heart disease Surgical History (Updated 10/22/20 @ 11:14 by Mar Zuniga) History of cerebral aneurysm repair History of cholecystectomy History of rhinoplasty History of testicular surgery Social History (Reviewed 07/08/20 @ 09:27 by Jennifer Francois COMMUNICATIONS TECHNOLOGIST, COMMUNICATIONS TECHNOLOGIST-C) Smoking Status: Former smoker quit date: 03/14/83 second hand exposure: No alcohol intake: never substance use type: does not use caffeine: Yes what type of physical activity do you participate in: none Vital Signs Vital Signs Vital Signs: 10/29/20 10:02 Temperature 97.2 F L Temperature Source Temporal Pulse Rate 63 Respiratory Rate 16 Respiratory Pattern Normal Blood Pressure 154/78 H Blood Pressure Mean 103 Blood Pressure Source Monitor Blood Pressure Position Semi-Fowlers Blood Pressure Location Right Arm Pulse Ox 100 Oxygen Delivery Method Room Air Weight Weight: 96.3 kg Body Mass Index (BMI) 30.4 Physical Exam Const alert and oriented x3 General Appearance: cooperative HEENT normocephalic, head/scalp atraumatic, EAC's normal and TM's normal bilaterally Eyes PERRL and EOMs intact bilaterally Pupil: sluggish Neck no lymphadenopathy, supple and no JVD General: trachea midline Lymph Lymphatic: no lymphadenopathy noted, lymphedema and lymphadenopathy Resp normal respiratory effort, normal air movement and clear to auscultation bilaterally Cardio regular rate, regular rhythm and peripheral pulses 2+ throughout GI soft to palpation, non-tender and non-distended Extremity normal capillary refill and no clubbing, cyanosis or edema General Extremity: no tenderness to palpation of joints or extremities Skin no rashes or lesions noted General Skin Exam: turgor normal Lesions: no lesions Rashes: no rashes Neuro CN's II-XII intact bilaterally Speech: speech normal Motor Exam: strength 5/5 throughout; Negative for general weakness Psych thought process normal, cooperative and affect normal Appearance: appropriate Results Lab / Micro Data Result Diagrams: 10/23/20 09:02 10/23/20 09:02 Assessment & Plan Assessment/Plan (1) Bladder tumor:
--- NOTE | 2020-10-29 11:58 | PCM.DC ---
Discharge Instructions Diet Discharge Diet: No restrictions Activity Discharge Activity: Return to Normal Activity and May Not Drive (while taking narcotic pain medications.) Dressing / Incision Call your doctor if you observe: Fever of 101 or Higher Follow Up Care Please Follow Up With: Armando Holguin MD When: Call [phone] for an appointment Test Results: Test results from this visit will be discussed in further detail at your follow-up appointment, if applicable. Discharge Plan Admission Primary Reason for Your Visit: resection of bladder tumor Attending Provider: Armando Holguin Primary Care Provider: Alison Aguirre Instructions Patient Instructions: Transurethral Bladder Biopsy Discharge Orders/Prescriptions Prescriptions: New ciprofloxacin HCl [Cipro] 500 mg tablet 500 mg PO BID Qty: 10 RF: 0 Continued pentoxifylline 400 mg tablet extended release 400 mg PO DAILY RF: 0 albuterol sulfate 2.5 mg /3 mL (0.083 %) solution for nebulization 2.5 mg INHALATION BID PRN (Reason: breathing) RF: 0 losartan-hydrochlorothiazide 100-12.5 mg tablet 1 tab PO QDAY RF: 0 albuterol sulfate [ProAir HFA] 90 mcg/actuation HFA aerosol inhaler 2 puff INHALATION Q6H PRN (Reason: breathing) RF: 0 fluticasone propionate [Flonase Allergy Relief] 50 mcg/actuation spray,suspension 2 spray INTRANASAL QDAY Qty: 16 RF: 3 tamsulosin 0.4 mg capsule 0.4 mg PO DAILY 90 Days Qty: 90 RF: 0 pravastatin 20 mg tablet 20 mg PO DAILY RF: 0 ropinirole [Requip] 0.5 mg tablet 1 mg PO DAILY RF: 0 cholecalciferol (vitamin D3) 5,000 unit tablet,disintegrating 5,000 unit PO DAILY RF: 0 amlodipine 10 mg tablet 10 mg PO DAILY RF: 0 omeprazole 40 mg capsule,delayed release(DR/EC) 40 mg PO DAILY RF: 0 eszopiclone 1 mg tablet 3 mg PO QHS RF: 0 celecoxib [Celebrex] 100 mg capsule 100 mg PO DAILY RF: 0 aspirin 81 MG tablet,chewable 81 mg PO DAILY@0800 RF: 0 atenolol 50 mg tablet 100 mg PO DAILY RF: 0 dutasteride [Avodart] 0.5 mg Capsule 0.5 mg PO DAILY RF: 0 Alvesco 160 mcg/actuation HFA aerosol inhaler 1 puff INHALATION DAILY RF: 0 Anoro Ellipta 62.5-25 mcg/actuation blister with device 1 ea INHALATION DAILY RF: 0 Other Ambulatory Orders: 12 Lead EKG (Routine) Timeframe: 20201023 Location: None Selected Ordered By: Dr. Julio Ya Referrals / Follow Up: Armando Holguin MD [STAFF PHYSICIAN] - Alison Aguirre DO [Primary Care Provider] - Disposition Disposition (needs filled in before D/C Order can be placed): Home, Self Care
--- NOTE | 2020-10-29 12:33 | PCM.OPRPT ---
Report of Operation Date of Procedure: 10/29/20 Pre-Operative Diagnosis: bladder tumor large Post-Operative Diagnosis: floridalmachung Surgery/Procedure Performed:: TURBT large and cysto right stent placement Description of Surgical Findings:: Patient presented to the hospital for treatment of a tumor that was found in the bladder with a large bladder tumor. Patient understands is possible it may not be able to resect the entire tumor. Patient also understands is possible that the patient may need multiple procedures or more invasive procedures to cure him of this cancer. Patient was taken back to the operating room after smooth induction of anesthesia the patient was placed supine on the table. The patient was placed in dorsolithotomy position. The urethra and genitals prepped and draped in usual sterile fashion. I went into the bladder with a 30 degree lens and a cystoscope and identified the tumor the tumor was about 5 centimeters in size and occupying mostly the right of the bladder. The right and left ureteral orifice were identified. The tumor was involved in the right ureteral orifice and needed a stent. Using a 21 Burundian rigid cystourethroscope the entire length of the urethra was normal then went into the bladder. Identified the trigone the left and right ureteral orifice. I then cannulated the orifice and advanced a wire up into the kidney. I then backloaded a 5 Burundian open ended catheter over the wire and injected contrast to delineate the anatomy. After the retrograde was performed I then used fluoroscopic images and guidance to advanced a wire up into the kidney and over the 0.038 glidewire I advanced a 6 Bur[place]ian by 26 cm double pigtail stent. I then pulled the 0.038 Glidewire off and the stent coiled in the kidney bladder good position. The bladder was then drained. I then placed the resectoscope and the bladder and resected the entire tumor down to the muscle. And then cauterized the resection base to obtained hemostasis. We then placed the catheter in the bladder and the patient was taken back to the PACU in stable condition. Surgeon: audi Type of Anesthesia: General Drains: harris and stent Admit VTE Documentation VTE Present on Admission: No VTE Mechan Device Prophylaxis: SCD's
[2020-10-29 12:46] VITALS: BP 154/78; BP 155/74; PULSE 70; RESP 16; TEMP 36.6; O2SAT 93
[2020-10-29 13:00] VITALS: BP 142/69; BP 154/78; PULSE 66; RESP 16; O2SAT 93
[2020-10-29 13:14] VITALS: BP 135/72; BP 154/78; PULSE 59; RESP 16; TEMP 36.3; O2SAT 94
[2020-10-29 14:15] VITALS: BP 139/74; BP 154/78; PULSE 59; RESP 16; TEMP 35.8; O2SAT 93
== END 2020-10-29 16:01 | disposition home or self-care (01) ==
LOC: SDC 09:42 → AC 09:43
PROVIDERS: Anesthesiology; PCP Internal Medicine; Referring Provider Urology; Visit Provider Urology
PROC: 0TBB8ZZ Excision of Bladder, Via Natural or Artificial Opening Endoscopic (ICD-10-PCS; CPT 52240; principal; 2020-10-29 11:30)
DX: C67.6 Malignant neoplasm of ureteric orifice (principal); K21.9 Gastro-esophageal reflux disease without esophagitis; Z79.899 Other long term (current) drug therapy; Z79.82 Long term (current) use of aspirin; I25.10 Atherosclerotic heart disease of native coronary artery without angina pectoris; I10 Essential (primary) hypertension; J44.9 Chronic obstructive pulmonary disease, unspecified; N40.0 Benign prostatic hyperplasia without lower urinary tract symptoms; Z87.891 Personal history of nicotine dependence; G47.33 Obstructive sleep apnea (adult) (pediatric); D80.3 Selective deficiency of immunoglobulin G [IgG] subclasses; E78.00 Pure hypercholesterolemia, unspecified; G25.81 Restless legs syndrome; Z79.51 Long term (current) use of inhaled steroids
CPT/HCPCS: 00912; 52240; 52332; 36415; 80048; 85027; 88307; 93005; J7120; C1769; C2617; J2405

== ENCOUNTER → 2021-02-24 07:48 | Outpatient (CLI) | payer MEDICARE, OTHER, SELFPAY ==
[2021-02-24 09:45] LABS: Anion Gap 6 (5-15); BUN 27 mg/dL (7-18); BUN/Creat Ratio 21.1 RATIO (10-20); Calcium,Total 9.1 mg/dL (8.5-10.1); Chloride 105 mmol/L (98-107); Creatinine, Serum 1.28 mg/dL (0.70-1.30); EST Glomerular Filtration Rate 57 mL/min (>60); Est Glom Filt Rate - Afr Amer 69 mL/min (>60); Glucose 107 mg/dL (74-106); Potassium 3.9 mmol/L (3.5-5.1); Sodium Level 137 mmol/L (136-145)
== END ==
PROVIDERS: PCP Internal Medicine; Referring Provider Internal Medicine Cardiovascular Disease; Visit Provider Internal Medicine Cardiovascular Disease
DX: R06.02 Shortness of breath (principal); E78.00 Pure hypercholesterolemia, unspecified; I25.10 Atherosclerotic heart disease of native coronary artery without angina pectoris; I10 Essential (primary) hypertension
CPT/HCPCS: 36415; 80048

== ENCOUNTER → 2021-02-27 07:06 | Outpatient (CLI) | payer MEDICARE, OTHER, SELFPAY ==
--- NOTE | 2021-02-27 07:10 | ECHOCS_ITS ---
Reason For Study: CAD/ASHD Procedure This was a 2D Doppler, Color Flow transthoracic echocardiogram. The study was technically difficult. Contrast injection was performed. Exam performed in department. Left Ventricle Normal LV size. Left ventricular systolic function is normal. The estimated ejection fraction is 65 %. Diastolic function is indeterminate. No regional wall motion abnormalities noted. Right Ventricle Normal RV size. Normal systolic function. Atria Normal left atrium. Normal right atrium. No doppler evidence for ASD. Mitral Valve There is mild mitral annular calcification. Extension of the mitral annular calcification onto the base of the posterior mitral valve leaflet. Trivial mitral valve insufficiency. Tricuspid Valve Normal tricuspid valve. Trivial tricuspid valve insufficiency. Right ventricular systolic pressure estimated to be 31 mmHg. Aortic Valve Trisinus/trileaflet aortic valve. Mild focal aortic valve calcification. Pulmonic Valve The pulmonic valve is not well visualized. Trivial pulmonic valve insufficiency. Great Vessels Normal sized aortic root. Pericardium/Pleural No pericardial effusion. Medication Diluted definity 2ml given slow IV push to enhance endocardial definition. MMode/2D Measurements & Calculations LVIDd: 5.1 cm IVSd: 1.1 cm Ao root diam: 3.4 cm LVIDs: 3.2 cm LVPWd: 1.2 cm RVDd: 2.9 cm FS: 37.1 % LAV(MOD-bp): 29.5 ml LVAd ap4: 31.1 cm2 SV(MOD-sp4): 66.2 ml LAV(MOD-bp) Indexed: 13.6 ml/m2 LVLd ap4: 8.2 cm LAV(MOD-sp2): 22.9 ml EDV(MOD-sp4): 97.4 ml LAV(MOD-sp4): 35.1 ml EDV(sp4-el): 99.9 ml LVAs ap4: 15.5 cm2 LVLs ap4: 6.4 cm ESV(MOD-sp4): 31.2 ml ESV(sp4-el): 31.5 ml EF(MOD-sp4): 68.0 % EF(sp4-el): 68.5 % SV(sp4-el): 68.4 ml LA A4 area: 15.4 cm2 LA dimension(2D): 4.3 cm RA A4 area: 8.8 cm2 Doppler Measurements & Calculations MV E max jake: 64.9 cm/sec Lat Peak E' Jake: 4.6 cm/sec Med Peak E' Jake: 4.9 cm/sec MV A max jake: 94.0 cm/sec E/E' lat: 14.2 E/E' med: 13.2 MV E/A: 0.69 Ao V2 max: 137.2 cm/sec LV V1 max: 115.1 cm/sec PA V2 max: 110.4 cm/sec Ao max P.5 mmHg LV V1 max P.3 mmHg Ao V2 mean: 90.0 cm/sec Ao mean P.6 mmHg Ao V2 VTI: 28.7 cm TR max jake: 265.0 cm/sec TR max P.1 mmHg ECHO/Echo Complete W/ Contrast Interpretation Summary The study was technically difficult. Contrast injection was performed. Left ventricular systolic function is normal. The estimated ejection fraction is 65 %. There is mild mitral annular calcification. Extension of the mitral annular calcification onto the base of the posterior mi tral valve leaflet. Trivial mitral valve insufficiency. Trivial tricuspid valve insufficiency. Mild focal aortic valve calcification. Trivial pulmonic valve insufficiency. Right ventricular systolic pressure estimated to be 31 mmHg. Diastolic function is indeterminate. Ordering Physician: Maximus Wilburn Referring Physician: Alison Aguirre Performed By: Maranda Cade, SHERICE, RVT
--- NOTE | 2021-02-27 08:47 | STRESSREP_ITS ---
Stress Test Report Date: 02-27-2021 Procedure: Pharmacologic stress nuclear imaging study Indications: Shortness of breath/dyspnea on exertion; CAD Consent: Per the patient Procedure: The patient underwent pharmacologic (Regadenoson 0.4mg ) evaluation with a peak heart rate of 88 beats per minute (64%predicted maximal heart rate) and a peak blood pressure of 152/70 mmHg. The baseline ECG demonstrated sinus bradycardia. The peak pharmacologic ECG demonstrated no obvious ECG changes. There were no cardiac dysrhythmias pretest, during pharmacologic infusion, or recovery. There was no complaint of chest discomfort during pharmacologic infusion or recovery. The examination was discontinued secondary to completion of protocol. Impression: 1. Pharmacologic (Regadenoson) evaluation 2. Peak pharmacologic ECG with no obvious ECG changes. 3. There were no cardiac dysrhythmias pretest, during pharmacologic infusion, or recovery. 4. Nuclear images pending Myocardial perfusion imaging study: Technique: The patient was injected with 14.8 millicuries of technetium 99m Cardiolite and subsequently rest SPECT Cardiolite nuclear imaging was obtained in the horizontal long, vertical long, and short axis views. The patient underwent pharmacologic (Regadenoson) evaluation with a peak heart rate of 88 beats per minute (64% percent predicted maximal heart rate) and a peak blood pressure of 152/70 mmHg. The patient was injected with 44.1 millicuries of technetium 99m Cardiolite and subsequently stress SPECT Cardiolite nuclear imaging was obtained in the horizontal long, vertical long, and short axis views. A gated Cardiolite study at peak stress was obtained. Interpretation: Rest and stress SPECT Cardiolite nuclear imaging status post realignment, normalization, and attenuation correction demonstrate body motion during image acquisition and otherwise relative uniform tracer uptake and myocardial perfusion appearing within normal limits. There is end systolic thickening and brightening. The gated Cardiolite study demonstrates myocardial thickening and inward wall motion. The reported LVEF is 66%. Impression: 1. Rest and stress SPECT Cardiolite nuclear imaging demonstrate relative uniform tracer uptake and myocardial perfusion appearing within normal limits. 2. The gated Cardiolite study reports an LVEF of 66%. This note was generated with [employer] software. It may contain incorrect words, spelling, and punctuation that were not noted in checking the note before signing.
== END ==
PROVIDERS: PCP Internal Medicine; Referring Provider Internal Medicine Cardiovascular Disease; Visit Provider Internal Medicine Cardiovascular Disease
DX: I25.10 Atherosclerotic heart disease of native coronary artery without angina pectoris (principal); R06.02 Shortness of breath; E78.00 Pure hypercholesterolemia, unspecified; I10 Essential (primary) hypertension
CPT/HCPCS: 78452; 93017; 93306; A9500; Q9957; A4216; C8929; J2785

== ENCOUNTER → 2021-03-04 06:53 | Outpatient (CLI) | payer MEDICARE, OTHER, SELFPAY ==
[2021-03-04 08:28] LABS: Anion Gap 9 (5-15); BUN 30 mg/dL (7-18); BUN/Creat Ratio 20.7 RATIO (10-20); Calcium,Total 8.9 mg/dL (8.5-10.1); Chloride 103 mmol/L (98-107); Creatinine, Serum 1.45 mg/dL (0.70-1.30); EST Glomerular Filtration Rate 49 mL/min (>60); Est Glom Filt Rate - Afr Amer 60 mL/min (>60); Glucose 104 mg/dL (74-106); Potassium 3.5 mmol/L (3.5-5.1); Sodium Level 141 mmol/L (136-145)
== END ==
PROVIDERS: PCP Internal Medicine; Referring Provider Internal Medicine Cardiovascular Disease; Visit Provider Internal Medicine Cardiovascular Disease
DX: I25.10 Atherosclerotic heart disease of native coronary artery without angina pectoris (principal)
CPT/HCPCS: 36415; 80048

== ENCOUNTER 2021-03-18 07:28 | Outpatient (CLI) | payer MEDICARE, OTHER, SELFPAY ==
[2021-03-18 08:20] LABS: Anion Gap 6 (5-15); BUN 23 mg/dL (7-18); BUN/Creat Ratio 17.8 RATIO (10-20); Calcium,Total 9.1 mg/dL (8.5-10.1); Chloride 103 mmol/L (98-107); Creatinine, Serum 1.29 mg/dL (0.70-1.30); EST Glomerular Filtration Rate 56 mL/min (>60); Est Glom Filt Rate - Afr Amer 68 mL/min (>60); Glucose 108 mg/dL (74-106); Potassium 4.3 mmol/L (3.5-5.1); Sodium Level 137 mmol/L (136-145)
== END 2021-03-18 23:59 | disposition short-term general hospital (02) ==
LOC: LAB 07:30
PROVIDERS: PCP Internal Medicine; Referring Provider Internal Medicine Cardiovascular Disease; Visit Provider Internal Medicine Cardiovascular Disease
DX: I25.10 Atherosclerotic heart disease of native coronary artery without angina pectoris (principal); I10 Essential (primary) hypertension
CPT/HCPCS: 36415; 80048

== ENCOUNTER 2021-04-14 17:00 | Outpatient (CLI) | payer MEDICARE, OTHER, SELFPAY ==
--- NOTE | 2021-04-14 | CYSPIN_PTH ---
PATIENT: AMANDA SHEEHAN LOC: [facility] U#:[id number] AGE/SX: 85/M ROOM: RE04/14/[address]: Dr. Armando Holguin MD : 1935 BED: DIS: 04/14/2021 SPEC #: [id number] RECD: 04/15/21 09:47 STATUS: LUCIE RELiang #: [id number] EVERARDO: 04/14/21 00:[address]: Armando Holguin DEPT: CYTOLOGY RECD BY: Martin Otoole ENTERED: 04/15/21 09:47 SP TYPE: CYSPIN FL OTHR DR: Dr. Alison Aguirre, DO Tissues: Urine Procedures: Pap Stain (control) Special Stain Group II Cytospin Fluid HEADER OPERATION: Not noted PRE-OP DIAGNOSIS: Malignant neoplasm of bladder TISSUE SUBMITTED: Urine for cytology DIAGNOSIS CYTOLOGY Urine for cytology (cytospin): Atypical urothelial cells with degenerative changes. See comment. AM:liyah 04/16/2021 COMMENT Low-grade urothelial carcinoma cannot be ruled out. Clinical correlation is suggested. Reference is made to the patient's previous urinary bladder TUR from 10/31/20 ([id number]) in which low-grade urothelial carcinoma was identified. CYTOLOGY STUDY Slides are reviewed. CYTOLOGY GROSS Received is 40 ml of gold cloudy fluid labeled with the patient's name and and designated per the requisition as urine. Submitted for cytology preparation. / liyah 04/15/2021 TC:? CPT: 37411
[2021-04-14 17:12] LABS: Cytology, Body Fluid / CSF SEE PATHOLOGY REPORT
== END 2021-04-14 23:59 | disposition short-term general hospital (02) ==
LOC: LABSPEC 17:02
PROVIDERS: PCP Internal Medicine; Referring Provider Urology; Visit Provider Urology
DX: C67.2 Malignant neoplasm of lateral wall of bladder (principal)
CPT/HCPCS: 88108; 88313

== ENCOUNTER 2021-05-06 06:21 | Day surgery (SDC) | payer MEDICARE, OTHER, SELFPAY ==
[2021-04-30 09:51] LABS: Hematocrit 36.5 % (40-54); Hemoglobin 12.8 g/dL (13.0-16.5); Mean Corp Hgb Conc 35.1 g/dL (32-36); Mean Corpuscular Hgb 29.9 pg (27.0-32.0); Mean Corpuscular Volume 85.3 fL (80-94); Mean Platelet Vol. 8.7 fl (6.2-12.0); Platelet Count 200 K/mm3 (150-450); RBC Distribution Width CV 14.6 % (11.6-14.6); RBC Distribution Width SD 44.9 fl (35.1-43.9); Red Blood Count 4.28 M/mm3 (4.6-6.2)
--- NOTE | 2021-04-30 13:39 | EKG12_ITS ---
Test Reason : PREOP Blood Pressure : / mmHG Vent. Rate : 062 BPM Atrial Rate : 062 BPM P-R Int : 192 ms QRS Dur : 088 ms QT Int : 402 ms P-R-T Axes : 000 -06 020 degrees QTc Int : 408 ms Normal sinus rhythm Normal ECG Confirmed by LYNNETTE HUNT, SACHIN ([id number]), editor city VESNA VALERA ([id number]) on 04/30/2021 1:41:41 PM Referred By: Armando Holguin Confirmed By:BARB CHURCH MD
[2021-05-06] VITALS (9 sets, daily range): BP systolic 93–160; BP diastolic 47–62; PULSE 34–66; RESP 16; TEMP 35.9–37.3; O2SAT 95–100; BMI 31.9
--- NOTE | 2021-05-06 | BLB_PTH ---
PATIENT: AMANDA SHEEHAN LOC: [facility] [place] U#:[id number] AGE/SX: 85/M ROOM: RE05/06/[address]: Dr. Armando Holguin MD : [id number] BED: DIS: 05/06/2021 SPEC #: [id number] RECD: 05/06/21 11:48 STATUS: LUCIE RELiang #: [id number] EVERARDO: 05/06/21 00:[address]: Armando Holguin DEPT: SURGICAL PATHOLOGY RECD BY: Martin Otoole ENTERED: 05/06/21 11:48 SP TYPE: TURB OTHR DR: MD Dr. Alison Barber DO Tissues: Urinary bladder, NOS Procedures: Surgery Specimen Level V HEADER OPERATION: Cysto, transurethral resection bladder PRE-OP DIAGNOSIS: Malignant neoplasm of lateral wall of bladder TISSUE SUBMITTED: Bladder tumor tissue MICROSCOPIC DIAGNOSIS Urinary bladder tumor, transurethral resection: Papillary urothelial carcinoma. See synoptic report below. AM:liyah 05/07/2021 COMMENT BLADDER CANCER (TUR) SUMMARY Procedure: Transurethral resection of bladder (TURBT) Tumor site: Not specified Histologic type: Papillary urothelial carcinoma Histologic grade: 1/3 (WHO low-grade) Tumor configuration: Papillary Muscularis propria presence: No muscularis propria present. Lymphvascular invasion: Not identified Tumor extension: Tumor confined to urothelium. Additional pathologic findings: Minimal chronic inflammation. The above summary is in compliance with [employer] (CAP) Cancer Protocols Checklist and [place] [employer] Committee on Cancer (AJCC), Staging Manual, 8th Ed. Reference is made to the patient's previous urinary bladder TUR ([id number]) in which papillary urothelial carcinoma, grade 1-2/3, was identified. MICROSCOPIC DESCRIPTION Slides are reviewed. GROSS DESCRIPTION Received in fixative is one container labeled with the patient's name and designated bladder tumor tissue. The specimen consists of multiple irregular fragments of castellanos soft tissue that in aggregate measure 1.7 x 0.5 x 0.1 cm. The specimen is totally submitted in one cassette. / AM:liyah 05/06/2021 TC:0 CPT: 58392
[2021-05-06] MEDS: Lactated Ringers 1,000 ML 15 ML IV (07:21)
[2021-05-06] MEDS: Lactated Ringers 1,000 ML 75 ML IV (09:35)
--- NOTE | 2021-05-06 09:37 | PCM.DC ---
Discharge Instructions Diet Discharge Diet: No restrictions Activity Discharge Activity: Return to Normal Activity and May Not Drive (while taking narcotic pain medications.) Dressing / Incision Call your doctor if you observe: Fever of 101 or Higher Follow Up Care Please Follow Up With: Armando Holguin MD When: Call [phone] for an appointment Test Results: Test results from this visit will be discussed in further detail at your follow-up appointment, if applicable. Discharge Plan Admission Primary Reason for Your Visit: resection of bladder cancer Attending Provider: Armando Holguin Primary Care Provider: Alison Aguirre Consulting Providers: Julio Ya Instructions Patient Instructions: Discharge Instructions for ... Discharge Orders/Prescriptions Prescriptions: New ciprofloxacin HCl [Cipro] 500 mg tablet 500 mg PO BID Qty: 6 RF: 0 Continued pentoxifylline 400 mg tablet extended release 400 mg PO QHS RF: 0 fluticasone propionate [Flonase Allergy Relief] 50 mcg/actuation spray,suspension 2 spray INTRANASAL QDAY Qty: 16 RF: 3 tamsulosin 0.4 mg capsule 0.4 mg PO DAILY 90 Days Qty: 90 RF: 0 pravastatin 20 mg tablet 20 mg PO DAILY RF: 0 ropinirole [Requip] 0.5 mg tablet 1 mg PO QHS RF: 0 cholecalciferol (vitamin D3) 5,000 unit tablet,disintegrating 5,000 unit PO DAILY RF: 0 amlodipine 10 mg tablet 10 mg PO DAILY RF: 0 omeprazole 40 mg capsule,delayed release(DR/EC) 40 mg PO QODAY RF: 0 eszopiclone 1 mg tablet 3 mg PO QHS RF: 0 hydrochlorothiazide 25 mg tablet 25 mg PO DAILY RF: 0 losartan 100 mg tablet 100 mg PO DAILY RF: 0 atenolol 100 mg tablet 100 mg PO DAILY RF: 0 potassium chloride [Klor-Con] 20 mEq Packet 40 meq PO DAILY RF: 0 budesonide 0.5 mg/2 mL Suspension For Nebulization 0.5 mg INHALATION BID RF: 0 vitamin B complex Capsule 1 cap PO DAILY RF: 0 Mucinex 1,200 mg Tablet Extended Release 12hr 1,200 mg PO Q12H PRN (Reason: COPD) RF: 0 omega 6-dgq-vzr-fish oil 900-1,400 mg Capsule,Delayed Release(Dr/Ec) 1 cap PO DAILY RF: 0 furosemide 20 mg tablet 20 mg PO DAILY Qty: 30 RF: 12 Held aspirin 81 MG tablet,chewable 81 mg PO DAILY@0800 RF: 0 Hold Instructions: Resume on 05/20/21. Referrals / Follow Up: Armando Holguin MD [STAFF PHYSICIAN] - Alison Aguirre DO [Primary Care Provider] - Disposition Disposition (needs filled in before D/C Order can be placed): Home, Self Care
--- NOTE | 2021-05-06 09:38 | PCM.HP.STD ---
HPI - General HPI Narrative AMANDA SHEEHAN, is a 85 M who presents for resection of recurrent bladder tumors multiple large tumors [facility] Medical History (Updated 04/29/21 @ 11:45 by Marita Sharma) Abdominal pain Abnormal chest CT Alcohol use Atherosclerotic heart disease of [place] coronary artery without angina pectoris Back pain Bladder disease Blood disorder BMI 28.0-28.9,adult BPH (benign prostatic hyperplasia) CAD (coronary artery disease) Cancer Cardiology follow-up encounter Chronic bronchitis Chronic sinusitis COPD (chronic obstructive pulmonary disease) CPAP (continuous positive airway pressure) dependence Diabetes Diastolic dysfunction Difficulty chewing Encounter for long-term (current) use of other medications Essential hypertension Fatigue Former smoker Gastric reflux History of echocardiogram History of edema History of left heart catheterization (LHC) History of stress test Hypertension Hypertension IgG deficiency Immunodeficiency disorder Loss of hearing Obstructive sleep apnea Palpitations Prostate disease Pure hypercholesterolemia Restless legs Shortness of breath Shortness of breath on exertion Ventricular tachycardia Wears dentures Wears glasses Home Medications aspirin 81 mg PO DAILY@0800 04/01/14 [History Last Taken 04/27/21] fluticasone propionate 50 mcg/actuation nasal spray,suspension 2 spray INTRANASAL QDAY #16 g 06/22/17 [Rx Last Taken Unknown] pentoxifylline 400 mg tablet,extended release 400 mg PO QHS tab 06/22/17 [History Last Taken Unknown] pravastatin 20 mg tablet 20 mg PO DAILY 09/04/18 [History Last Taken Unknown] cholecalciferol (vitamin D3) 125 mcg (5,000 unit) disintegrating tablet 5,000 unit PO DAILY 03/05/19 [History Last Taken Unknown] ropinirole 0.5 mg tablet 1 mg PO QHS tab 03/27/19 [History Last Taken Unknown] omeprazole 40 mg capsule,delayed release 40 mg PO QODAY 09/12/19 [History Last Taken 05/06/21] amlodipine 10 mg tablet 10 mg PO DAILY 11/05/19 [History Last Taken 05/06/21] tamsulosin 0.4 mg capsule 0.4 mg PO DAILY 90 Days #90 cap 11/05/19 [History Last Taken Unknown] eszopiclone 1 mg tablet 3 mg PO QHS 04/30/20 [History Last Taken Unknown] atenolol 100 mg tablet 100 mg PO DAILY 02/18/21 [History Last Taken 05/06/21] hydrochlorothiazide 25 mg tablet 25 mg PO DAILY 02/18/21 [History Last Taken Unknown] losartan 100 mg tablet 100 mg PO DAILY 02/18/21 [History Last Taken 05/06/21] furosemide 20 mg tablet 20 mg PO DAILY #30 tab 03/19/21 [Rx Last Taken Unknown] Mucinex 1,200 mg PO Q12H PRN 04/29/21 [History Last Taken Unknown] budesonide 0.5 mg INHALATION BID 04/29/21 [History Last Taken 05/06/21] omega 3-yvg-usk-fish oil 1 cap PO DAILY 04/29/21 [History Last Taken Unknown] potassium chloride [Klor-Con] 40 meq PO DAILY 04/29/21 [History Last Taken Unknown] vitamin B complex 1 cap PO DAILY 04/29/21 [History Last Taken Unknown] ciprofloxacin HCl [Cipro] 500 mg PO BID #6 tab 05/06/21 [Rx Last Taken Unknown] Allergy/AdvReac Type Severity Reaction Status Date / Time cocaine Allergy Anaphylaxis Verified 04/29/21 11:12 codeine Allergy Rash Verified 04/29/21 11:12 Penicillins Allergy Swelling Verified 04/29/21 11:12 Family History Mother Cancer Stomach Brother , 73 Years old Myocardial infarction Father Heart disease Surgical History (Updated 04/29/21 @ 11:45 by Marita Sharma) History of cerebral aneurysm repair History of cholecystectomy History of rhinoplasty History of testicular surgery Social History Smoking Status: Former smoker quit date: 03/14/83 second hand exposure: No alcohol intake: never substance use type: does not use caffeine: Yes what type of physical activity do you participate in: none Vital Signs Vital Signs Vital Signs: 05/06/21 07:11 05/06/21 07:14 Temperature 98.3 F Temperature Source Temporal Pulse Rate 58 L Respiratory Rate 16 Respiratory Pattern Normal Blood Pressure 140/53 H Blood Pressure Mean 82 Blood Pressure Source Monitor Blood Pressure Position Semi-Fowlers Blood Pressure Location Left Arm Pulse Ox 98 Oxygen Delivery Method Room Air Weight Weight: 101 kg Body Mass Index (BMI) 31.9 Results Lab / Micro Data Result Diagrams: 04/30/21 09:07
--- NOTE | 2021-05-06 09:38 | PCM.OPRPT ---
Report of Operation Date of Procedure: 05/06/21 Pre-Operative Diagnosis: Bladder cancer recurrence Post-Operative Diagnosis: Same Surgery/Procedure Performed:: Transurethral resection of bladder tumors large and multiple Description of Surgical Findings:: Is an 85-year-old gentleman found to have bladder cancer in the [place] area he has been was treated cystoscopy time before was clear he comes back for another cystoscopy this time we see multiple tumors within the bladder is a large tumor in the posterior wall he has multiple large tumors up in the dome organ to proceed with resection of these tumors. He does have a very stretched out bladder making the case very difficult. Patient was taken back to the operating room at the smooth induction of general anesthesia he was placed in dorsolithotomy position. The urethra penis and Testicles were prepped and draped in usual fashion went in the bladder with a 21 Vietnamese rigid cystourethroscope I did a john cystoscopy with a 30 and 70 degree lens, identified a large tumor and the posterior wall that is about 5 cm in size there and identified multiple large tumors up in the dome each about 3 cm in size multiple tumors throughout the bladder very extensive amount of cancer in the bladder and fortunately he did have a very stretched out bladder was able to then put in the resectoscope and resected this posterior wall tumor quite easily but then the case became extremely difficult as with the large distended bladder the tumors up in the dome were nearly impossible to reach after attempting several maneuvers to push on the bladder pushing the patient's bladder to push the tumors down into the resectoscope field I then ended up switching over to a continuous-flow resectoscope we put the resectoscope on suction this allowed the bladder not to get fully distended and then with this I was able to then push the dome tumors down to the resectoscope and then I resected the stone tumors using the resectoscope mostly using the button electrode and also also the loop electrode the specimen was handed off as this as a specimen is a bladder cancer it appeared to be noninvasive but just very large tumor after resecting these large tumors or cauterizing extensively I could not see any more tumors again a very difficult case with the push down the patient's bladder quite hard with the use a suction continuous-flow and was able to resect all the tumors that were visible but he is a very high risk for more recurrent tumors he was given mitomycin-C chemotherapy after resection and if I need mitomycin-C postop in the office least 6 treatments. I went discussed with the family members regarding the finding in the case. Surgeon: audi Type of Anesthesia: General Drains: harris Admit VTE Documentation VTE Present on Admission: No VTE Mechan Device Prophylaxis: SCD's VTE Pharm Prophylaxis ordered?: No
--- NOTE | 2021-05-06 10:05 | SUR.PHASEI ---
CHAIREZ CATHETER IN PLACE. CLAMPED PER ORDERS X1 HOUR DUE TO MITOMYCIN PLACEMENT.
[2021-05-06] MEDS: oxyCODONE 5 MG Tablet PO (11:36)
[2021-05-06] MEDS: Acetaminophen 325 MG Tablet 650 MG PO (14:50)
--- NOTE | 2021-05-06 15:01 | SUR.PHASEII ---
pt. voided 50ml. bladder scanned for 230ml. requesting to attempt to void again.
== END 2021-05-06 23:59 | disposition home or self-care (01) ==
LOC: SDC 06:21 → AC 06:24
PROVIDERS: Anesthesiology; PCP Internal Medicine; Referring Provider Urology; Visit Provider Urology
PROC: 0T5B8ZZ Destruction of Bladder, Via Natural or Artificial Opening Endoscopic (ICD-10-PCS; CPT 51720; principal; 2021-05-06 08:15)
DX: C67.2 Malignant neoplasm of lateral wall of bladder (principal); D80.3 Selective deficiency of immunoglobulin G [IgG] subclasses; E11.9 Type 2 diabetes mellitus without complications; I25.10 Atherosclerotic heart disease of native coronary artery without angina pectoris; N40.0 Benign prostatic hyperplasia without lower urinary tract symptoms; I10 Essential (primary) hypertension; G47.33 Obstructive sleep apnea (adult) (pediatric); R06.02 Shortness of breath; E78.00 Pure hypercholesterolemia, unspecified; Z79.82 Long term (current) use of aspirin; Z79.899 Other long term (current) drug therapy; Z87.891 Personal history of nicotine dependence; K21.9 Gastro-esophageal reflux disease without esophagitis; G25.81 Restless legs syndrome
CPT/HCPCS: 52240; 00912; 36415; 85027; 88307; 93005; J7120; J2405; J3490; J9280

== ENCOUNTER 2021-05-26 10:40 | Outpatient (CLI) | payer MEDICARE, OTHER, SELFPAY ==
--- NOTE | 2021-05-26 10:50 | RAD_ITS ---
INDICATION: Chest pain, SOB EXAMINATION/TECHNIQUE: X-RAY - XR Chest 2 Views COMPARISON: CTA chest from 08/06/2016. Chest radiograph from 06/09/2015. FINDINGS: Support devices: None. No focal consolidations, effusions, or sizable pneumothorax. Cardiomediastinal silhouette is within normal limits. No acute findings in the bones or soft tissues. Cholecystectomy clips in the right upper quadrant. RAD/Chest PA and Lateral IMPRESSION: No acute findings. Electronically Signed: Huy Desai, at 16:41 EDT ,
== END 2021-05-26 23:59 | disposition home or self-care (01) ==
LOC: RAD 10:43
PROVIDERS: PCP Internal Medicine; Referring Provider Nurse Practitioner Family; Visit Provider Nurse Practitioner Family
DX: R06.02 Shortness of breath (principal); R07.9 Chest pain, unspecified
CPT/HCPCS: 71046

== ENCOUNTER 2021-07-02 12:52 | Outpatient (CLI) | payer MEDICARE, OTHER, SELFPAY ==
--- NOTE | 2021-07-02 12:55 | VDLE_ITS ---
Reason For Study: Pain in left calf RIGHT LEFT CFV is compressible, spontaneous, phasic, GSV is normal. competent and demonstrates normal CFV is compressible, spontaneous, phasic, augmentation. competent, and demonstrates normal Procedure augmentation. This is a venous duplex using B-mode, color FV prox is compressible with normal venous flow and spectral Doppler. flow noted. Exam performed in department. Acute deep vein thrombosis is noted in the A preliminary report was called and/or faxed left FV mid-distal, PopV, T/P Trunk, Gastroc to Stella. vein, Soleus vein, PTV and Peroneal vein. Thrombus in FV mid is loosely attached to lyon. Nonvascularized structure noted in the left popliteal fossa measuring 1.99 x 5.87 cm. 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 Acute deep venous thrombosis left mid to distal femoral vein, popliteal, tibiop eroneal trunk, gastrocnemius, soleus, posterior tibial, and peroneal veins. Thrombus in the fe moral vein appears loosely attached. Patent and compressible left great saphenous vein Normal flow patterns right common femoral vein Ordering Physician: Alison Aguirre Referring Physician: Alison Aguirre Performed By: Chiqui Perry RVT
== END 2021-07-02 23:59 | disposition home or self-care (01) ==
LOC: CVS 12:53
PROVIDERS: PCP Internal Medicine; Referring Provider Internal Medicine; Visit Provider Internal Medicine
DX: M79.662 Pain in left lower leg (principal)
CPT/HCPCS: 93971

== ENCOUNTER 2021-07-03 11:44 | Emergency (ER) | payer MEDICARE, OTHER, SELFPAY ==
[2021-07-03 11:45] VITALS: BP 164/78; PULSE 70; RESP 18; TEMP 36.3; O2SAT 95; BMI 31.2
[2021-07-03 12:08] LABS: Mucous, Urine 0 SEEN /hpf (<or=2+)
[2021-07-03 12:11] LABS: Color, Urine Red (Yellow); Glucose, Dipstick Normal (Normal); Ketone-Dipstick 5 mg/dl (Negative); Leukocyte Esterase-Dipstick 500 /ul (Negative); Nitrite-Dipstick Negative (Negative); Occult Blood-Urine 250 /ul (Negative); Protein-Dipstick 100 mg/dl (Negative); Urine Bilirubin Dipstick Negative (Negative); Urine Clarity Cloudy (Clear); Urine Urobilinogen Normal (Normal); Urine pH 6.5 (5.0 - 8.0)
--- NOTE | 2021-07-03 12:13 | EX.ED.DYSGE1 ---
HPI <SIVA Cadena - Last Filed: 07/03/21 13:06> History of Present Illness Chief Complaint: Complaint Narrative Narrative: 85-year-old male with history of COPD, bladder cancer, sleep apnea recently diagnosed with blood clot to the left lower extremity on presents the emergency department with episodes of blood in his urine. Patient is on his second day of , patient is 6 weeks post tumor removal from his bladder by urology. Patient states that this morning he had dark red urine, he states that it is getting better every time use the restroom. Patient denies any actual pain. Patient denies any infectious symptoms or fever chills. Patient denies any dysuria or frequency. PFSH <SIVA Cadena - Last Filed: 07/03/21 13:06> FORMERLY [facility], [facility] Medical History Abdominal pain Abnormal chest CT Alcohol use Atherosclerotic heart disease of [place] coronary artery without angina pectoris Back pain Bladder disease Blood disorder BMI 28.0-28.9,adult BPH (benign prostatic hyperplasia) CAD (coronary artery disease) Cancer Cardiology follow-up encounter Chronic bronchitis Chronic sinusitis COPD (chronic obstructive pulmonary disease) CPAP (continuous positive airway pressure) dependence Diabetes Diastolic dysfunction Difficulty chewing Encounter for long-term (current) use of other medications Essential hypertension Fatigue Former smoker Gastric reflux History of echocardiogram History of edema History of left heart catheterization (LHC) History of stress test Hypertension Hypertension IgG deficiency Immunodeficiency disorder Loss of hearing Obstructive sleep apnea Palpitations Prostate disease Pure hypercholesterolemia Restless legs Shortness of breath Shortness of breath on exertion Ventricular tachycardia Wears dentures Wears glasses Home Medications aspirin 81 mg chewable tablet 81 mg PO DAILY@0800 04/01/14 [History Last Taken 04/27/21] fluticasone propionate 50 mcg/actuation nasal spray,suspension 2 spray INTRANASAL QDAY #16 g 06/22/17 [Rx Last Taken Unknown] pentoxifylline 400 mg tablet,extended release 400 mg PO QHS tab 06/22/17 [History Last Taken Unknown] cholecalciferol (vitamin D3) 125 mcg (5,000 unit) disintegrating tablet 5,000 unit PO DAILY 03/05/19 [History Last Taken Unknown] ropinirole 0.5 mg tablet 1 mg PO QHS tab 03/27/19 [History Last Taken Unknown] tamsulosin 0.4 mg capsule 0.4 mg PO DAILY 90 Days #90 cap 11/05/19 [History Last Taken Unknown] Mucinex 1,200 mg PO Q12H PRN 04/29/21 [History Last Taken Unknown] budesonide 0.5 mg INHALATION BID 04/29/21 [History Last Taken 05/06/21] omega 8-asf-yxv-fish oil 1 cap PO DAILY 04/29/21 [History Last Taken Unknown] vitamin B complex 1 cap PO DAILY 04/29/21 [History Last Taken Unknown] amlodipine 10 mg tablet 10 mg PO DAILY #90 tab 05/26/21 [Rx Last Taken Unknown] atenolol 100 mg tablet 100 mg PO DAILY #90 tab 05/26/21 [Rx Last Taken Unknown] dutasteride 0.5 mg capsule 0.5 mg PO DAILY 05/26/21 [History Last Taken Unknown] eszopiclone 3 mg tablet 3 mg PO QHS PRN tab 05/26/21 [History Last Taken Unknown] furosemide 20 mg tablet 20 mg PO DAILY #90 tab 05/26/21 [Rx Last Taken Unknown] hydrochlorothiazide 25 mg tablet 25 mg PO DAILY #90 tab 05/26/21 [Rx Last Taken Unknown] losartan 100 mg tablet 100 mg PO DAILY #90 tab 05/26/21 [Rx Last Taken Unknown] omeprazole 40 mg capsule,delayed release 40 mg PO DAILY PRN cap 05/26/21 [History Last Taken Unknown] potassium chloride 20 mEq tablet,extended release(part/cryst) 40 meq PO DAILY #180 tab 05/26/21 [Rx Last Taken Unknown] pravastatin 20 mg tablet 20 mg PO DAILY #90 tab 05/26/21 [Rx Last Taken Unknown] sulfamethoxazole-trimethoprim [Bactrim DS] 1 tab PO BID #13 tab 07/03/21 [Rx Last Taken Unknown] Allergy/AdvReac Type Severity Reaction Status Date / Time cocaine Allergy Anaphylaxis Verified 07/03/21 11:50 codeine Allergy Rash Verified 07/03/21 11:50 Penicillins Allergy Swelling Verified 07/03/21 11:50 Family History Mother Cancer Stomach Brother , 73 Years old Myocardial infarction Father Heart disease Surgical History History of cerebral aneurysm repair History of cholecystectomy History of rhinoplasty History of testicular surgery Social History Smoking Status: Former smoker quit date: 03/14/83 second hand exposure: No alcohol intake: never substance use type: does not use caffeine: Yes what type of physical activity do you participate in: none ROS <SIVA Cadena - Last Filed: 07/03/21 13:06> ROS ED ROS Narrative Constitutional: Negative for fever, chills, weight loss, weakness Eyes: Negative for vision loss, vision change, double vision ENT: Negative for any sore throat, ear pain, congestion Cardiovascular: Negative for any chest pain, tightness, palpitations, racing heartbeat Respiratory: Negative for any cough, sputum production, hemoptysis, shortness of breath, shortness of breath on exertion, orthopnea Gastrointestinal: Negative for any abdominal pain, nausea, vomiting, diarrhea, constipation, blood in stool, blood in vomit : Negative for any urinary frequency, incontinence, dysuria, retention. Positive for hematuria Muscle skeletal: Negative for any muscle joint pain, stiffness, myalgias, arthralgias, neck pain, back pain Neurological: Negative for any headache, dizziness, syncope, numbness or tingling Skin: Negative for any rashes, lumps, itching, abrasions, lacerations Psychiatric: Negative for any depression, anxiety, stress, suicidal ideation, homicidal ideation Hematologic: Negative for any easy bruising, excessive bruising, easy bleeding Allergies: Negative for any eczema, hives, rash EXAM <SIVA Cadena - Last Filed: 07/03/21 13:06> Physical Exam Narrative Exam Narrative: Vital signs reviewed. HEET: Head normocephalic atraumatic, TMs clear bilaterally. Posterior pharynx is clear, moist mucous membranes. Nares clear bilaterally. Neck: Supple with no lymphadenopathy or tenderness. No signs of meningismus, negative jolt sign. Cardiac: Regular rate and rhythm no murmurs gallops or rubs, equal peripheral pulses bilaterally. Respiratory: Lungs clear to auscultation bilaterally. No chest tenderness. Abdomen: Soft, nontender, nondistended. No abdominal bruit or pulsatile masses. No hepatosplenomegaly Extremities: No peripheral edema, no signs of gross trauma or deformity. Active full range of motion of all extremities. Neuro: Cranial nerves II through XII intact, no focal neurological deficits. Skin: Clean dry and intact with no rash, purpura, petechiae, vesicles or pustules. Backslash flank: No CVA tenderness, no midline spinal tenderness, no deformity. Psych: Normal mood and affect. No SI, HI or acute psychosis. Patient did urinate into a cup, this did show some red urine however no noticeable clots. Const Vital Signs: 07/03/21 11:45 Temperature 97.4 F L Temperature Source Temporal Pulse Rate 70 Respiratory Rate 18 Blood Pressure 164/78 H Blood Pressure Mean 106 Pulse Ox 95 Oxygen Delivery Method Room Air Positive well nourished and well developed General Appearance ED: well developed <Dr. Gen Rodriguez MD - Last Filed: 07/03/21 12:58> Physical Exam Const Vital Signs: 07/03/21 11:45 Temperature 97.4 F L Temperature Source Temporal Pulse Rate 70 Respiratory Rate 18 Blood Pressure 164/78 H Blood Pressure Mean 106 Pulse Ox 95 Oxygen Delivery Method Room Air MDM <SIVA Cadena - Last Filed: 07/03/21 13:06> [facility] MDM Narrative Medical decision making narrative: Patient appears well, patient appears nontoxic, vital signs are stable. Patient presents to the emergency department with blood in his urine after starting Eliquis. Patient also has a complicated bladder cancer history and is currently receiving bladder chemo via the urethra every Tuesday for 6 weeks. Patient urine is clearing up as he continues to go in the emergency department. Patient did receive some basic laboratory values, patient's CBC was unremarkable, patient's chemistries were baseline for the patient. Patient's urinalysis did show urine blood of 250, was cloudy, leukocyte Estrace of 500 RBCs and WBCs both 25-50. 1+ bacteria. We did reach out to , he will see the patient this upcoming Tuesday, patient is to hold his Eliquis for 2 days. Patient will be started on Bactrim for 7 days secondary to urinary tract infection that was sent for culture. Patient given strict return precautions to return for any confusion, worsening bleeding from his urine, chest pain or shortness of breath. Patient is stable for discharge and will follow up in 2 days. Lab Data Attestation: I reviewed the patient's lab results. Labs: Laboratory Results - last 24 hr 07/03/21 07/03/21 07/03/21 12:04 12:25 12:25 WBC 4.5 RBC 4.32 L Hgb 12.7 L Hct 37.1 L MCV 85.9 MCH 29.4 MCHC 34.2 RDW Std Deviation 44.8 H RDW Coeff of Cj 14.2 Plt Count 153 MPV 8.6 Immature Gran % (Auto) 0.400 Neut % (Auto) 67.7 Lymph % (Auto) 20.7 Blanco % (Auto) 10.1 H Eos % (Auto) 0.7 Baso % (Auto) 0.4 Absolute Neuts (auto) 3.1 Absolute Lymphs (auto) 0.94 Nucleated RBC % 0 PT INR Sodium 136 Potassium 3.8 Chloride 102 Carbon Dioxide 28.0 Anion Gap 6 BUN 20 H Creatinine 1.35 H Estim Creat Clear Calc 42.06 Est GFR (MDRD) Af Amer 65 Est GFR (MDRD) Non-Af 53 L BUN/Creatinine Ratio 14.8 Glucose 122 H Calcium 8.8 Urine Color Red Urine Clarity Cloudy Urine pH 6.5 Ur Specific [place] 1.010 Urine Protein 100 H Urine Glucose (UA) Normal Urine Ketones 5 H Urine Occult Blood 250 H Urine Nitrite Negative Urine Bilirubin Negative Urine Urobilinogen Normal Ur Leukocyte Esterase 500 H Urine RBC 25-50 SEEN Urine WBC 25-50 SEEN Ur Squamous Epith Cells 0-5 SEEN Urine Bacteria 1+ Urine Mucus 0 SEEN 07/03/21 12:25 WBC RBC Hgb Hct MCV MCH MCHC RDW Std Deviation RDW Coeff of Cj Plt Count MPV Immature Gran % (Auto) Neut % (Auto) Lymph % (Auto) Blanco % (Auto) Eos % (Auto) Baso % (Auto) Absolute Neuts (auto) Absolute Lymphs (auto) Nucleated RBC % PT 17.3 H INR 1.5 Sodium Potassium Chloride Carbon Dioxide Anion Gap BUN Creatinine Estim Creat Clear Calc Est GFR (MDRD) Af Amer Est GFR (MDRD) Non-Af BUN/Creatinine Ratio Glucose Calcium Urine Color Urine Clarity Urine pH Ur Specific [place] Urine Protein Urine Glucose (UA) Urine Ketones Urine Occult Blood Urine Nitrite Urine Bilirubin Urine Urobilinogen Ur Leukocyte Esterase Urine RBC Urine WBC Ur Squamous Epith Cells Urine Bacteria Urine Mucus <Dr. Gen Rodriguez MD - Last Filed: 07/03/21 12:58> MDM MDM Narrative Medical decision making narrative: Seen and evaluated independently and in conjunction with nurse practitioner. Agree with notes above unless documented otherwise. Patient well-appearing, abdomen soft nontender nondistended with normal bowel sounds present. Normal Patient started Eliquis yesterday for newly diagnosed DVT, he denies any symptoms of a pulmonary embolus. Started bleeding today. He urinated here in the ER, he states the bleeding is less and his urine is pink without any clots and he has had no symptoms of urinary retention. Urinalysis shows some indicators for infection. We sent this for culture. Discussed with his urologist Dr. Holguin. He advises holding Eliquis for 48 hours and started him on empiric antibiotics and he will follow-up. Discussed reasons to return for the patient, we also discussed this is a risk-benefit scenario, certainly he is at risk for pulmonary embolus but he is also at risk for bleeding from a noncompressible site, hence only holding the anticoagulant for short period of time. They understand this and are comfortable with this overall plan. No Sierra needed right now since his bleeding is improving and no clots or symptoms of retention. Lab Data Attestation: I reviewed the patient's lab results. Labs: Laboratory Results - last 24 hr 07/03/21 07/03/21 07/03/21 12:04 12:25 12:25 WBC 4.5 RBC 4.32 L Hgb 12.7 L Hct 37.1 L MCV 85.9 MCH 29.4 MCHC 34.2 RDW Std Deviation 44.8 H RDW Coeff of Cj 14.2 Plt Count 153 MPV 8.6 Immature Gran % (Auto) 0.400 Neut % (Auto) 67.7 Lymph % (Auto) 20.7 Blanco % (Auto) 10.1 H Eos % (Auto) 0.7 Baso % (Auto) 0.4 Absolute Neuts (auto) 3.1 Absolute Lymphs (auto) 0.94 Nucleated RBC % 0 PT INR Sodium 136 Potassium 3.8 Chloride 102 Carbon Dioxide 28.0 Anion Gap 6 BUN 20 H Creatinine 1.35 H Estim Creat Clear Calc 42.06 Est GFR (MDRD) Af Amer 65 Est GFR (MDRD) Non-Af 53 L BUN/Creatinine Ratio 14.8 Glucose 122 H Calcium 8.8 Urine Color Red Urine Clarity Cloudy Urine pH 6.5 Ur Specific [place] 1.010 Urine Protein 100 H Urine Glucose (UA) Normal Urine Ketones 5 H Urine Occult Blood 250 H Urine Nitrite Negative Urine Bilirubin Negative Urine Urobilinogen Normal Ur Leukocyte Esterase 500 H Urine RBC 25-50 SEEN Urine WBC 25-50 SEEN Ur Squamous Epith Cells 0-5 SEEN Urine Bacteria 1+ Urine Mucus 0 SEEN 07/03/21 12:25 WBC RBC Hgb Hct MCV MCH MCHC RDW Std Deviation RDW Coeff of Cj Plt Count MPV Immature Gran % (Auto) Neut % (Auto) Lymph % (Auto) Blanco % (Auto) Eos % (Auto) Baso % (Auto) Absolute Neuts (auto) Absolute Lymphs (auto) Nucleated RBC % PT 17.3 H INR 1.5 Sodium Potassium Chloride Carbon Dioxide Anion Gap BUN Creatinine Estim Creat Clear Calc Est GFR (MDRD) Af Amer Est GFR (MDRD) Non-Af BUN/Creatinine Ratio Glucose Calcium Urine Color Urine Clarity Urine pH Ur Specific [place] Urine Protein Urine Glucose (UA) Urine Ketones Urine Occult Blood Urine Nitrite Urine Bilirubin Urine Urobilinogen Ur Leukocyte Esterase Urine RBC Urine WBC Ur Squamous Epith Cells Urine Bacteria Urine Mucus Discharge Plan Triage Chief Complaint: Complaint ED Midlevel Provider: Maximus Foley ED Provider: Gen Rodriguez Dx/Rx/DC Orders Clinical Impression: Hematuria, DVT (deep venous thrombosis) Instructions: What is Hematuria?, DVT Dc, ED Hematuria Prescriptions: New sulfamethoxazole-trimethoprim [Bactrim DS] 800-160 mg tablet 1 tab PO BID Qty: 13 RF: 0 No Action pentoxifylline 400 mg tablet extended release 400 mg PO QHS RF: 0 fluticasone propionate [Flonase Allergy Relief] 50 mcg/actuation spray,suspension 2 spray INTRANASAL QDAY Qty: 16 RF: 3 tamsulosin 0.4 mg capsule 0.4 mg PO DAILY 90 Days Qty: 90 RF: 0 ropinirole [Requip] 0.5 mg tablet 1 mg PO QHS RF: 0 cholecalciferol (vitamin D3) 5,000 unit tablet,disintegrating 5,000 unit PO DAILY RF: 0 omeprazole 40 mg capsule,delayed release(DR/EC) 40 mg PO DAILY PRNRF: 0 eszopiclone 3 mg tablet 3 mg PO QHS PRNRF: 0 dutasteride [Avodart] 0.5 mg capsule 0.5 mg PO DAILY RF: 0 amlodipine 10 mg tablet 10 mg PO DAILY Qty: 90 RF: 3 atenolol 100 mg tablet 100 mg PO DAILY Qty: 90 RF: 3 furosemide 20 mg tablet 20 mg PO DAILY Qty: 90 RF: 3 hydrochlorothiazide 25 mg tablet 25 mg PO DAILY Qty: 90 RF: 3 losartan 100 mg tablet 100 mg PO DAILY Qty: 90 RF: 3 potassium chloride 20 mEq tablet,ER particles/crystals 40 meq PO DAILY Qty: 180 RF: 3 pravastatin 20 mg tablet 20 mg PO DAILY Qty: 90 RF: 3 aspirin 81 MG tablet,chewable 81 mg PO DAILY@0800 RF: 0 Hold Instructions: Resume on 05/20/21. budesonide 0.5 mg/2 mL Suspension For Nebulization 0.5 mg INHALATION BID RF: 0 vitamin B complex Capsule 1 cap PO DAILY RF: 0 Mucinex 1,200 mg Tablet Extended Release 12hr 1,200 mg PO Q12H PRN (Reason: COPD) RF: 0 omega 6-cac-cnz-fish oil 900-1,400 mg Capsule,Delayed Release(Dr/Ec) 1 cap PO DAILY RF: 0 Primary Care Provider: Alison Aguirre Referrals: Armando Holguin MD [STAFF PHYSICIAN] - 1-2 Days if not improving Alison Aguirre DO [Primary Care Provider] - Activity Restrictions/Additional Instructions: Please follow-up with your urologist this Tuesday. Please start your Eliquis back up in 48 hours. Take antibiotics until finished. Print Language: [place] Disposition Disposition: Home, Self Care
[2021-07-03 12:21] LABS: Bacteria 1+ /hpf (None Seen); Red Blood Cells-Urine 25-50 SEEN /hpf (0-5); Squamous Epithelial Cells - UA 0-5 SEEN /hpf (0-5); White Blood Cells 25-50 SEEN /hpf (0-5)
[2021-07-03 12:38] LABS: Absolute Lymphocyte Count 0.94 X10^3/uL (0.83-4.51); Absolute Neutrophil Count 3.1 X10^3/uL (2.0-7.7); Basophil# 0.02 X10^3/uL; Basophil% 0.4 % (0-1); Eosinophil# 0.03 X10^3/uL; Eosinophils% 0.7 % (0-5); Hematocrit 37.1 % (40-54); Hemoglobin 12.7 g/dL (13.0-16.5); Lymphocyte # 0.94 X10^3/ul (0.83-4.51); Lymphocyte % 20.7 % (19-41); Mean Corp Hgb Conc 34.2 g/dL (32-36); Mean Corpuscular Hgb 29.4 pg (27.0-32.0); Mean Corpuscular Volume 85.9 fL (80-94); Mean Platelet Vol. 8.6 fl (6.2-12.0); Monocyte# 0.46 X10^3/uL; Monocyte% 10.1 % (0-10); NRBC Flagged by Analyzer 0 % (0-5); Neutrophil # 3.07 X10^3/uL (2.7-7.7); Neutrophil % 67.7 % (47-70); Platelet Count 153 K/mm3 (150-450); RBC Distribution Width CV 14.2 % (11.6-14.6); RBC Distribution Width SD 44.8 fl (35.1-43.9); Red Blood Count 4.32 M/mm3 (4.6-6.2); White Blood Count 4.5 K/mm3 (4.4-11.0)
[2021-07-03 12:47] LABS: Anion Gap 6 (5-15); BUN 20 mg/dL (7-18); BUN/Creat Ratio 14.8 RATIO (10-20); Calcium,Total 8.8 mg/dL (8.5-10.1); Chloride 102 mmol/L (98-107); Creatinine, Serum 1.35 mg/dL (0.70-1.30); EST Glomerular Filtration Rate 53 mL/min (>60); Est Glom Filt Rate - Afr Amer 65 mL/min (>60); Estimated Creatinine Clearance 42.06 ml/min; Glucose 122 mg/dL (74-106); Potassium 3.8 mmol/L (3.5-5.1); Sodium Level 136 mmol/L (136-145)
[2021-07-03 12:48] LABS: International Normalized Ratio 1.5; Prothrombin Time (Protime)PT. 17.3 SECONDS (11.7-14.9)
[2021-07-03] MEDS: Smz/Tmp Ds Tablet 1 TABLET PO (13:31)
[2021-07-03 13:35] VITALS: BP 128/64; PULSE 71; RESP 15; O2SAT 98
== END 2021-07-03 13:36 | disposition home or self-care (01) ==
PROVIDERS: Nurse Practitioner; Emergency Provider Emergency Medicine; PCP Internal Medicine; Visit Provider Emergency Medicine
DX: R31.9 Hematuria, unspecified (principal); I82.402 Acute embolism and thrombosis of unspecified deep veins of left lower extremity; I25.10 Atherosclerotic heart disease of native coronary artery without angina pectoris; Z79.01 Long term (current) use of anticoagulants; G47.33 Obstructive sleep apnea (adult) (pediatric); Z87.891 Personal history of nicotine dependence
CPT/HCPCS: 80048; 81001; 85025; 85610; 87086; 99284; A4216

== ENCOUNTER → 2021-07-06 | Outpatient (CLI) | payer MEDICARE, OTHER, SELFPAY ==
--- NOTE | 2021-07-06 | CYSPIN_PTH ---
PATIENT: AMANDA SHEEHAN [facility] U[facility][id number] AGE/SX: 85/M ROOM: RE07/06/[address]: Dr. Armando Holguin MD : 1935 BED: DIS: 07/06/2021 SPEC #: [id number] RECD: 07/07/21 09:36 STATUS: LUCIE RELiang #: [id number] EVERARDO: 07/06/21 00:[address]: Armando Holguin DEPT: CYTOLOGY RECD BY: Martin Otoole ENTERED: 07/07/21 09:37 SP TYPE: CYSPIN FL OTHR DR: Dr. Alison Aguirre, DO Tissues: Urine Procedures: Pap Stain (control) Special Stain Group II Cytospin Fluid HEADER OPERATION: Not noted PRE-OP DIAGNOSIS: Elevated PSA TISSUE SUBMITTED: Urine for cytology DIAGNOSIS CYTOLOGY Urine for cytology (cytospin): Marked acute inflammation. See comment. SOFIA:liyah 07/07/2021 COMMENT The specimen predominantly consists of neutrophils. Repeat cytology is suggested if clinically indicated. 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 CYTOLOGY STUDY Slides are reviewed. CYTOLOGY GROSS Received is 20 ml of red cloudy fluid labeled with the patient's name and and designated per the requisition as urine. Submitted for cytology preparation. / liyha 07/07/2021 TC:2 CPT: 80285
[2021-07-06 17:26] LABS: Cytology, Body Fluid / CSF SEE PATHOLOGY REPORT
== END | disposition home or self-care (01) ==
LOC: LABSPEC 16:52
PROVIDERS: PCP Internal Medicine; Visit Provider Urology
DX: R97.20 Elevated prostate specific antigen [PSA] (principal)
CPT/HCPCS: 88108; 88313

== ENCOUNTER → 2021-09-21 | Outpatient (CLI) | payer MEDICARE, OTHER, SELFPAY ==
--- NOTE | 2021-09-21 07:52 | VDLE_ITS ---
Reason For Study: DVT Procedure LEFT This is a venous duplex using B-mode, color GSV is normal. flow and spectral Doppler. CFV is compressible, spontaneous, phasic, Exam performed in department. competent, and demonstrates normal A preliminary report was called and/or faxed augmentation. to Timothy. FV is compressible, spontaneous, phasic, Compared to 07/02/2021. competent and demonstrates normal augmentation. POP V is compressible, spontaneous, phasic, competent and demonstrates normal augmentation. T/P Trunk is compressible. PTV is compressible. LT PerV is compressible. Gastroc and Soleus veins are compressible. VL/Venous Duplex US, Unilateral Interpretation Summary There is no evidence of left lower extremity deep vein thrombosis. Refer to the previous examination of July 02, 2021 with improvement currently noted. Popliteal fossa 2.25 x 5.76 x 7.08 hypoechoic nonvascular with some internal ec hoes consistent with a Anthony's cyst Ordering Physician: Alison Aguirre Referring Physician: Alison Aguirre M.D. Performed By: Chiqui Perry RVT
== END | disposition home or self-care (01) ==
LOC: CVS 07:36
PROVIDERS: PCP Internal Medicine; Visit Provider Internal Medicine
DX: I82.412 Acute embolism and thrombosis of left femoral vein (principal)
CPT/HCPCS: 93971

== ENCOUNTER → 2021-10-13 | Outpatient (CLI) | payer MEDICARE, OTHER, SELFPAY ==
--- NOTE | 2021-10-13 | CYSPIN_PTH ---
PATIENT: AMANDA SHEEHAN [facility] U[facility][id number] AGE/SX: 86/M ROOM: RE10/13/[address]: Dr. Armando Holguin MD : 1935 BED: DIS: 10/13/2021 SPEC #: [id number] RECD: 10/14/21 06:46 STATUS: LUCIE RELiang #: [id number] EVERARDO: 10/13/21 00:[address]: Armando Holguin DEPT: CYTOLOGY RECD BY: Nanda Cazares ENTERED: 10/14/21 06:46 SP TYPE: CYSPIN FL OTHR DR: Dr. Alison gAuirre, DO Tissues: Urine Procedures: Pap Stain (control) Special Stain Group II Cytospin Fluid HEADER OPERATION: Not noted PRE-OP DIAGNOSIS: Malignant bladder neoplasm TISSUE SUBMITTED: Urine for cytology DIAGNOSIS CYTOLOGY Urine for cytology (cytospin): Rare atypical urothelial cells present. (Aury System, Category 3). Acute inflammation. AM:liyah 10/14/2021 COMMENT Reference is made to the patient's previous urinary bladder TUR from 2020 ([id number]) in which papillary urothelial carcinoma, low grade, was identified. The Aury System for reporting urine cytology was used int the evaluation of this case. CYTOLOGY STUDY Slides are reviewed. CYTOLOGY GROSS Received is 80 ml of yellow gold cloudy fluid labeled with the patient's name and and designated per the requisition as urine. Submitted for cytology preparation. / liyah 10/13/2021 TC:? CPT: 09731
[2021-10-13 17:02] LABS: Cytology, Body Fluid / CSF SEE PATHOLOGY REPORT
== END | disposition home or self-care (01) ==
LOC: LABSPEC 16:46
PROVIDERS: PCP Internal Medicine; Visit Provider Urology
DX: C67.9 Malignant neoplasm of bladder, unspecified (principal)
CPT/HCPCS: 88108; 88313

== ENCOUNTER → 2021-10-30 | Outpatient (CLI) | payer MEDICARE, OTHER, SELFPAY ==
--- NOTE | 2021-10-30 10:21 | VDLE_ITS ---
Reason For Study: LLE PAIN RIGHT LEFT CFV is compressible, spontaneous, phasic, GSV is normal. competent and demonstrates normal CFV is compressible, spontaneous, phasic, augmentation. competent, and demonstrates normal Procedure augmentation. This is a venous duplex using B-mode, color FV is compressible, spontaneous, phasic, flow and spectral Doppler. competent and demonstrates normal Exam performed in department. augmentation. The exam was diagnostic. POP V is compressible, spontaneous, phasic, A preliminary report was called and/or faxed competent and demonstrates normal to Dr. Aguirre @ 10:50 am @ [phone]. augmentation. T/P Trunk is compressible. PTV is compressible. LT PerV is compressible. Non-vascular structure noted in the left pop fossa space measuring 2.94cm x 4.36cm x 6.34cm. VL/Venous Duplex US, Unilateral Interpretation Summary Deep veins of the left lower extremity are patent and compressible segmentally. There is no evidence of left lower extremity deep vein thrombosis. Valvular competence appears intac t within the proximal deep venous system on the left . The left great saphenous vein appears patent a nd compressible segmentally. A non-vascular, hypoechoic structure is noted in the left poplitea l space, measuring 2.94 cm x 4.36 cm x 6.34 cm. This may represent a popliteal cyst. Clinical sam elation is advised. Ordering Physician: Alison Aguirre Referring Physician: Alison Aguirre Performed By: Lindsey Guillen, RDCS, RVT
== END | disposition home or self-care (01) ==
LOC: CVS 10:17
PROVIDERS: PCP Internal Medicine; Referring Provider Internal Medicine; Visit Provider Internal Medicine
DX: M79.662 Pain in left lower leg (principal)
CPT/HCPCS: 93971

== ENCOUNTER 2021-11-11 13:37 | Observation (INO) | payer MEDICARE, OTHER, SELFPAY ==
[2021-11-11] VITALS (10 sets, daily range): BP systolic 133–154; BP diastolic 49–73; PULSE 58–68; RESP 14–18; TEMP 36.3–36.8; O2SAT 94–99; BMI 30.9
--- NOTE | 2021-11-11 | PROS_PTH ---
PATIENT: AMANDA SHEEHAN LOC: [facility] U#:[id number] AGE/SX: 86/M ROOM: [facility] RE11/11/[address]: Dr. Armando Holguin MD : 1935 BED: 1 DIS: 11/12/2021 SPEC #: [id number] RECD: 11/11/21 16:45 STATUS: LUCIE TALAVERALiang #: [id number] EVERARDO: 11/11/21 00:[address]: Armando Holguin DEPT: SURGICAL PATHOLOGY RECD BY: Martin Otoole ENTERED: 11/12/21 11:11 SP TYPE: TURP OTHR DR: Dr. Alison Aguirre DO Tissues: A - Urinary bladder, NOS B - Prostate, NOS Procedures: Surgery Specimen Level IV Surgery Specimen Level V HEADER OPERATION: Cystoscopy, transurethral resection of prostate and bladder PRE-OP DIAGNOSIS: BPH, bladder carcinoma TISSUE SUBMITTED: A ? Bladder tumors, B ? Prostate pieces MICROSCOPIC DIAGNOSIS A. Urinary bladder tumor, transurethral resection: Papillary urothelial carcinoma. See synoptic report below. B. Prostate, transurethral resection: Single fragment of urothelium with papillary urothelial carcinoma, grade 1, noninvasive. Benign nodular hyperplasia, glandular and stromal types. Mild chronic inflammation. See comment. AM:liyah 11/13/2021 COMMENT A. 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 Lymphvascular invasion: Not identified Tumor extension: Confined to urothelium Additional pathologic findings: Chronic inflammation and redness of benign prostatic tissue. The above summary is in compliance with [employer] [place] [employer] (CAP) Cancer Protocols Checklist and [place] Joint Committee on Cancer (AJCC), Staging Manual, 8th Ed. B. A single fragment of urothelial mucosa with papillary urothelial carcinoma, grade 1, with no evidence of invasion is identified. The morphology is similar to the urinary bladder tumor (specimen A). Clinical correlation is suggested. Case has been reviewed in consultation with Dr. Calle who concurs with the above diagnosis. IDC:[email or web address] MICROSCOPIC DESCRIPTION Slides are reviewed. GROSS DESCRIPTION A - Received in fixative is one container labeled with the patient's name and designated bladder tumor. The specimen consists of multiple fragments of castellanos, indurated tissue that in aggregate measure 2.5 x 2.5 x 0.3 cm. The specimen is totally submitted in one cassette. B - Received is one container labeled with the patient's name and designated prostate pieces. The specimen consists of multiple irregular fragments of pink-castellanos, rubbery, soft tissue that in aggregate weigh 23.7 gm and measure in aggregate 7 x 7 x 3 cm. [employer] tissue is submitted in ten cassettes. / SJ:liyah 11/12/2021 TC:0 CPT: 15763, 41219
[2021-11-11 12:26] LABS: Hematocrit 38.7 % (40-54); Mean Corp Hgb Conc 33.6 g/dL (32-36); Mean Corpuscular Hgb 29.1 pg (27.0-32.0); Mean Corpuscular Volume 86.8 fL (80-94); Mean Platelet Vol. 8.3 fl (6.2-12.0); Platelet Count 196 K/mm3 (150-450); RBC Distribution Width CV 14.2 % (11.6-14.6); RBC Distribution Width SD 45.1 fl (35.1-43.9); Red Blood Count 4.46 M/mm3 (4.6-6.2); White Blood Count 6.9 K/mm3 (4.4-11.0)
[2021-11-11] MEDS: Lactated Ringers 1,000 ML 15 ML IV ×2 (12:27→15:39)
[2021-11-11 12:37] LABS: Anion Gap 5 (5-15); BUN 34 mg/dL (7-18); Calcium,Total 9.2 mg/dL (8.5-10.1); Chloride 106 mmol/L (98-107); Creatinine, Serum 1.31 mg/dL (0.70-1.30); EST Glomerular Filtration Rate 55 mL/min (>60); Est Glom Filt Rate - Afr Amer 67 mL/min (>60); Glucose 98 mg/dL (74-106); Potassium 4.3 mmol/L (3.5-5.1); Sodium Level 138 mmol/L (136-145)
[2021-11-11] MEDS: Cefazolin 2 GM in 0.9% Normal Saline 100 ML IV (13:28)
--- NOTE | 2021-11-11 14:54 | PCM.HP.STD ---
HPI - General HPI Narrative AMANDA SHEEHAN, is a 86 M who presents with BPH and obstruction presents for TURP also has multiple bladder tumors were presents for resection of these tumors [facility] Medical History (Updated 11/04/21 @ 14:19 by Kristy Lazo) Abdominal pain Abnormal chest CT Alcohol use Atherosclerotic heart disease of [place] coronary artery without angina pectoris Back pain Bladder disease Blood disorder BMI 28.0-28.9,adult BPH (benign prostatic hyperplasia) CAD (coronary artery disease) Cancer Cardiology follow-up encounter Chronic bronchitis Chronic sinusitis COPD (chronic obstructive pulmonary disease) CPAP (continuous positive airway pressure) dependence Diabetes Diastolic dysfunction Difficulty chewing Encounter for long-term (current) use of other medications Essential hypertension Fatigue Former smoker Gastric reflux History of echocardiogram History of edema History of left heart catheterization (LHC) History of stress test Hypertension Hypertension IgG deficiency Immunodeficiency disorder Loss of hearing Obstructive sleep apnea Palpitations Prostate disease Pure hypercholesterolemia Restless legs Shortness of breath Shortness of breath on exertion Ventricular tachycardia Wears dentures Wears glasses Home Medications aspirin 81 mg chewable tablet 81 mg PO DAILY@0800 04/01/14 [History Last Taken 11/07/21] pentoxifylline 400 mg tablet,extended release 400 mg PO QHS 06/22/17 [History Last Taken 11/10/21] cholecalciferol (vitamin D3) 125 mcg (5,000 unit) disintegrating tablet 5,000 unit PO DAILY 03/05/19 [History Last Taken 11/10/21] ropinirole 0.5 mg tablet (Requip) 1 mg PO QHS 03/27/19 [History Last Taken 11/10/21] guaifenesin 1,200 mg tablet, extended release 12 hr (Mucinex) 1,200 mg PO Q12H PRN COPD 04/29/21 [History Last Taken 11/10/21] omega 8-uid-gsr-fish oil 900 mg-1,400 mg capsule,delayed release 1 cap PO DAILY 04/29/21 [History Last Taken 11/10/21] vitamin B complex 1 cap PO DAILY 04/29/21 [History Last Taken 11/10/21] amlodipine 10 mg tablet 10 mg PO DAILY #90 tabs 05/26/21 [Rx Last Taken 11/10/21] atenolol 100 mg tablet 100 mg PO DAILY #90 tabs 05/26/21 [Rx Last Taken 11/11/21] eszopiclone 3 mg tablet 3 mg PO QHS PRN Sleep 05/26/21 [History Last Taken 11/10/21] hydrochlorothiazide 25 mg tablet 25 mg PO DAILY #90 tabs 05/26/21 [Rx Last Taken 11/10/21] losartan 100 mg tablet 100 mg PO DAILY #90 tabs 05/26/21 [Rx Last Taken 11/10/21] omeprazole 40 mg capsule,delayed release 40 mg PO QODAY 05/26/21 [History Last Taken 11/10/21] potassium chloride 20 mEq tablet,extended release(part/cryst) 40 meq PO DAILY #180 tabs 05/26/21 [Rx Last Taken 11/10/21] pravastatin 20 mg tablet 20 mg PO DAILY #90 tabs 05/26/21 [Rx Last Taken 11/10/21] apixaban 5 mg tablet (Eliquis) 5 mg PO BID 07/22/21 [History Last Taken 11/07/21] umeclidinium 62.5 mcg-vilanterol 25 mcg/actuation powdr for inhalation (Anoro Ellipta) 1 inh inhalation DAILY 07/22/21 [History Last Taken 11/10/21] budesonide 0.5 mg/2 mL suspension for nebulization 0.5 mg (2 mL) inhalation BID #120 mL 07/27/21 [Rx Last Taken 11/10/21] ipratropium 0.5 mg-albuterol 3 mg (2.5 mg base)/3 mL nebulization soln 3 ml inhalation Q4H PRN PRN SOB &/OR WHEEZING #180 mL 07/27/21 [Rx Last Taken Unknown] fluticasone propionate 50 mcg/actuation nasal spray,suspension (Flonase Allergy Relief) 2 spray intranasal PRN PRN ALLERGIES 11/04/21 [History Last Taken 11/10/21] furosemide 20 mg tablet 10 mg PO BID 11/04/21 [History Last Taken 11/10/21] acetaminophen 500 mg oral powder packet (Tylenol Extra Strength) 500 mg PO Q4H PRN fever or pain #20 ea 11/11/21 [Rx Last Taken Unknown] ciprofloxacin HCl 500 mg tablet (Cipro) 500 mg PO BID #6 tabs 11/11/21 [Rx Last Taken Unknown] ibuprofen 600 mg tablet 600 mg PO Q6H PRN fever or pain #20 tabs 11/11/21 [Rx Last Taken Unknown] Allergy/AdvReac Type Severity Reaction Status Date / Time cocaine Allergy Anaphylaxis Verified 11/11/21 12:28 codeine Allergy Rash Verified 11/11/21 12:28 Penicillins Allergy Swelling Verified 11/11/21 12:28 Family History (Reviewed 07/22/21 @ 08:21 by Jennifer Francois ROPE LAYING MACHINE OPERATOR, ROPE LAYING MACHINE OPERATOR-C) Mother Cancer Stomach Brother , 73 Years old Myocardial infarction Father Heart disease Surgical History (Updated 11/04/21 @ 14:22 by Kristy Lazo) History of cerebral aneurysm repair History of cholecystectomy History of rhinoplasty History of testicular surgery Hx of brain surgery Hx of surgical procedure Social History (Reviewed 07/22/21 @ 08:21 by Jennifer Francois ROPE LAYING MACHINE OPERATOR, ROPE LAYING MACHINE OPERATOR-C) Smoking Status: Former smoker quit date: 03/14/83 second hand exposure: No alcohol intake: never substance use type: does not use caffeine: Yes what type of physical activity do you participate in: none Vital Signs Vital Signs Vital Signs: 11/11/21 12:33 11/11/21 12:33 Temperature 97.5 F L Temperature Source Temporal Pulse Rate 68 Respiratory Rate 18 Respiratory Pattern Normal Blood Pressure 154/63 H Blood Pressure Mean 93 Blood Pressure Source Monitor Blood Pressure Position Semi-Fowlers Blood Pressure Location Left Arm Pulse Ox 99 Oxygen Delivery Method Room Air Weight Weight: 97.976 kg Body Mass Index (BMI) 30.9 Results Lab / Micro Data Result Diagrams: 11/11/21 12:15 11/11/21 12:15 Labs: Laboratory Results - last 24 hr 11/11/21 12:15: WBC 6.9, RBC 4.46 L, Hgb 13.0, Hct 38.7 L, MCV 86.8, MCH 29.1, MCHC 33.6, RDW Std Deviation 45.1 H, RDW Coeff of Cj 14.2, Plt Count 196, MPV 8.3 11/11/21 12:15: Sodium 138, Potassium 4.3, Chloride 106, Carbon Dioxide 27.0, Anion Gap 5, BUN 34 H, Creatinine 1.31 H, Est GFR (MDRD) Af Amer 67, Est GFR (MDRD) Non-Af 55 L, BUN/Creatinine Ratio 26.0 H, Glucose 98, Calcium 9.2
--- NOTE | 2021-11-11 14:54 | PCM.DC ---
Discharge Instructions Diet Discharge Diet: No restrictions, Light diet - advance as tolerated and Soft diet Follow Up Care Please Follow Up With: Armando Holguin MD When: 2 weeks Test Results: Test results from this visit will be discussed in further detail at your follow-up appointment, if applicable. Discharge Plan Admission Primary Reason for Your Visit: carley Attending Provider: Armando Holguin Primary Care Provider: Alison Aguirre Instructions Patient Instructions: [facility] Home Recovery Discharge Orders/Prescriptions Prescriptions: New ibuprofen 600 mg tablet 600 mg PO Q6H PRN (Reason: fever or pain) Qty: 20 0RF Tylenol Extra Strength 500 mg powder in packet 500 mg PO Q4H PRN (Reason: fever or pain) Qty: 20 0RF ciprofloxacin HCl [Cipro] 500 mg tablet 500 mg PO BID Qty: 6 0RF Continued pentoxifylline 400 mg tablet extended release 400 mg PO QHS ropinirole [Requip] 0.5 mg tablet 1 mg PO QHS cholecalciferol (vitamin D3) 5,000 unit tablet,disintegrating 5,000 unit PO DAILY omeprazole 40 mg capsule,delayed release(DR/EC) 40 mg PO QODAY Anoro Ellipta 62.5-25 mcg/actuation blister with device 1 inh inhalation DAILY budesonide 0.5 mg/2 mL suspension for nebulization 0.5 mg INHALATION BID Qty: 120 5RF ipratropium-albuterol 0.5 mg-3 mg(2.5 mg base)/3 mL solution for nebulization 3 ml inhalation Q4H PRN PRN (Reason: SOB &/OR WHEEZING) Qty: 180 6RF eszopiclone 3 mg tablet 3 mg PO QHS PRN (Reason: Sleep) Label Comments: TAKE 1 TABLET BY MOUTH AT BEDTIME NEEDED INSOMNIA amlodipine 10 mg tablet 10 mg PO DAILY Qty: 90 3RF atenolol 100 mg tablet 100 mg PO DAILY Qty: 90 3RF hydrochlorothiazide 25 mg tablet 25 mg PO DAILY Qty: 90 3RF losartan 100 mg tablet 100 mg PO DAILY Qty: 90 3RF potassium chloride 20 mEq tablet,ER particles/crystals 40 meq PO DAILY Qty: 180 3RF pravastatin 20 mg tablet 20 mg PO DAILY Qty: 90 3RF vitamin B complex Capsule 1 cap PO DAILY Mucinex 1,200 mg Tablet Extended Release 12hr 1,200 mg PO Q12H PRN (Reason: COPD) omega 7-moo-uwq-fish oil 900-1,400 mg Capsule,Delayed Release(Dr/Ec) 1 cap PO DAILY furosemide 20 mg tablet 10 mg PO BID fluticasone propionate [Flonase Allergy Relief] 50 mcg/actuation spray,suspension 2 spray INTRANASAL PRN PRN (Reason: ALLERGIES) Rx Instructions: administer into each nostril Held Eliquis 5 mg tablet 5 mg PO BID Hold Instructions: Resume on 11/25/21. Label Comments: LAST DOSE 11/07/21, STOP 3 DAYS PRIOR TO OR aspirin 81 MG tablet,chewable 81 mg PO DAILY@0800 Hold Instructions: Resume on 11/25/21. Label Comments: STOP 11/07 Discontinued tamsulosin 0.4 mg capsule 0.4 mg PO DAILY 90 Days Qty: 90 Label Comments: TAKE ONE CAPSULE BY MOUTH EVERY DAY dutasteride [Avodart] 0.5 mg capsule 0.5 mg PO DAILY Referrals / Follow Up: Armando Holguin MD [Med Staff - Active Staff] - Alison Aguirre DO [Primary Care Provider] - Disposition Disposition (needs filled in before D/C Order can be placed): Home, Self Care
--- NOTE | 2021-11-11 14:55 | PCM.OPRPT ---
Report of Operation Date of Procedure: 11/11/21 Pre-Operative Diagnosis: BPH with obstruction multiple bladder tumors large Post-Operative Diagnosis: The same Surgery/Procedure Performed:: Transurethral section of large bladder tumors and TURP Description of Surgical Findings:: Patient presented to the hospital for treatment of a tumor that was found in the bladder with a very large bladder tumor. Patient understands is possible it may not be able to resect the entire tumor. Patient also understands is possible that the patient may need multiple procedures or more invasive procedures to cure him of this cancer.We discussed how a prostate resection is done and we discussed the risk of the surgery including, bleeding, infection, retrograde ejaculation, changes with ejaculation or intercourse,. We discussed the possibility that the resection of the prostate may not alleviate his urinary symptoms. We discussed the small risk of developing scar tissue along the urethral channel and strictures. We also discussed the chance of the prostate could grow back and he may need further surgery Patient was taken back to the operating room after smooth induction of anesthesia the patient was placed supine on the table. The patient was placed in dorsolithotomy position. The urethra and genitals prepped and draped in usual sterile fashion. I went into the bladder with a 30 degree lens and a cystoscope was performed and identified the tumor the tumors which was about 2.5 centimeters in size and occupying mostly the left lateral wall, also had a large tumor in the dome of the bladder about 3cm in size in the the bladder. I then switched over to the 70 degree lens and inspected the rest of the bladder with a 70 degree lens to make sure there is no other tumors in the bladder and to identify all the tumor locations. The right and left ureteral orifice were identified. The tumor was not involved in the ureteral orifice. I then placed the Olympus bipolar resectoscope with a large loop into the bladder. I then started resected the tumor and started superficially shaving small little pieces working my way to the base of the tumor. As I went along I then cauterize any bleeders that were encountered during the resection. The tumor pieces were then flushed out of the bladder and continued resecting the tumor until finally I got down to the base of the tumor and the muscle of the bladder was then identified a small little bit of muscle was taken with the resection. The Ellik was used then to evacuate all the tumor pieces out of the bladder. I then cauterized extensively the tumor base and also circumferentially around where the tumor was. Again we made sure to evacuate all the pieces out the bladder. I made sure there was no more bleeding from the base of the bladder and then over the tumor pieces were then evacuated out and sent off as a specimen. I then Went into the bladder using the visual obturator with a resectoscope. Once inside the bladder identified the right and left ureteral orifice. I then identified the prostate and the anatomy of the prostate. I marked out the area of the sphincter and the verumontanum was identified. I then proceeded with the prostate resection first resected the median lobe. And then resected the right lobe of the prostate. Then to resect the left lobe of the prostate. I then resected the apical tissue of the prostate. This was a complete resection of all obstructive tissue to improve voiding and relieve obstruction. I then made sure that there was no injury to the sphincter or the verumontanum was still intact. At the end of the resection all the chips were Ellik out of the bladder. I then identified the left and right ureteral orifice and these were confirmed to be in good position and effluxing and not injured. The resectoscope was removed, a 22 [place] catheter was placed into the bladder on continuous irrigation We then placed the catheter in the bladder and the patient was taken back to the PACU in stable condition. Surgeon: Armando Holguin Type of Anesthesia: General Drains: 22fr 3 way Admit VTE Documentation VTE Present on Admission: No VTE Mechan Device Prophylaxis: SCD's
[2021-11-11] MEDS: Furosemide 20 MG Tablet 10 MG PO (17:56)
[2021-11-11] MEDS: Budesonide Respules 0.5 MG/2 ML AMPUL.NEB. INHALATION (19:05)
[2021-11-11] MEDS: Ciprofloxacin 500 MG Tablet PO (22:29)
[2021-11-11] MEDS: Zolpidem Tartrate 5 MG Tablet PO (22:30)
[2021-11-11] MEDS: Pentoxifylline 400 MG Tablet PO (22:30)
[2021-11-11] MEDS: Pramipexole Di-HCl 0.5 MG Tablet PO (22:30)
[2021-11-12 00:39] VITALS: BP 131/54; PULSE 64; RESP 18; TEMP 36.6; O2SAT 97
[2021-11-12 04:48] VITALS: BP 148/65; PULSE 75; RESP 18; TEMP 36.4; O2SAT 98
[2021-11-12 06:44] VITALS: PULSE 56; RESP 16
[2021-11-12] MEDS: Budesonide Respules 0.5 MG/2 ML AMPUL.NEB. INHALATION (06:44)
--- NOTE | 2021-11-12 07:37 | PCM.PN.BLA ---
Progress Note s/p turp d/c [facility] and discharge home, doing wel.
[2021-11-12] MEDS: Potassium Chloride Oral Tablet 20 MEQ 40 MEQ PO (08:05)
[2021-11-12] MEDS: Ciprofloxacin 500 MG Tablet PO (08:06)
[2021-11-12] MEDS: Furosemide 20 MG Tablet 10 MG PO (08:06)
[2021-11-12] MEDS: amLODIPine 10 MG Tablet PO (08:07)
[2021-11-12] MEDS: hydroCHLOROthiazide 25 MG Tablet PO (08:07)
[2021-11-12] MEDS: Pantoprazole Sodium 40 MG Tablet PO (08:07)
[2021-11-12] MEDS: Losartan Potassium 100 MG Tablet PO (08:07)
[2021-11-12] MEDS: Atenolol 100 MG Tablet PO (08:08)
== END 2021-11-12 10:51 | disposition home or self-care (01) ==
LOC: SDC 15:16 → MS3 15:16
PROVIDERS: Anesthesiology; Admitting Provider Urology; PCP Internal Medicine; Referring Provider Urology; Visit Provider Urology
PROC: (CPT 52601; principal; 2021-11-11 13:50)
DX: N40.1 Benign prostatic hyperplasia with lower urinary tract symptoms (principal); D80.3 Selective deficiency of immunoglobulin G [IgG] subclasses; J43.9 Emphysema, unspecified; C67.8 Malignant neoplasm of overlapping sites of bladder; I25.10 Atherosclerotic heart disease of native coronary artery without angina pectoris; Z87.891 Personal history of nicotine dependence; N13.8 Other obstructive and reflux uropathy; Z79.899 Other long term (current) drug therapy; Z79.01 Long term (current) use of anticoagulants; Z79.82 Long term (current) use of aspirin; I10 Essential (primary) hypertension; M19.90 Unspecified osteoarthritis, unspecified site; G47.33 Obstructive sleep apnea (adult) (pediatric); E78.00 Pure hypercholesterolemia, unspecified
CPT/HCPCS: 52601; 52240; 00914; 80048; 85027; 88305; 88307; 94640; 99218; 99251; J7120; G0378; G0463; J2405

== ENCOUNTER → 2022-04-09 | Outpatient (CLI) | payer MEDICARE, OTHER, SELFPAY ==
[2022-04-09 10:28] LABS: Hematocrit 38.2 % (40-54); Hemoglobin 12.7 g/dL (13.0-16.5); Mean Corp Hgb Conc 33.2 g/dL (32-36); Mean Corpuscular Hgb 29.3 pg (27.0-32.0); Mean Corpuscular Volume 88.2 fL (80-94); Mean Platelet Vol. 8.8 fl (6.2-12.0); Platelet Count 231 K/mm3 (150-450); RBC Distribution Width CV 14.9 % (11.6-14.6); RBC Distribution Width SD 48.7 fl (35.1-43.9); Red Blood Count 4.33 M/mm3 (4.6-6.2)
[2022-04-09 10:31] LABS: Anion Gap 8 (5-15); BUN 25 mg/dL (7-18); BUN/Creat Ratio 19.7 RATIO (10-20); Calcium,Total 9.2 mg/dL (8.5-10.1); Chloride 101 mmol/L (98-107); Creatinine, Serum 1.27 mg/dL (0.70-1.30); EST Glomerular Filtration Rate 57 mL/min (>60); Est Glom Filt Rate - Afr Amer 69 mL/min (>60); Glucose 137 mg/dL (74-106); Potassium 3.8 mmol/L (3.5-5.1); Sodium Level 137 mmol/L (136-145)
== END | disposition home or self-care (01) ==
LOC: LAB 09:19
PROVIDERS: PCP Internal Medicine; Referring Provider Urology; Visit Provider Urology
DX: Z01.818 Encounter for other preprocedural examination (principal)
CPT/HCPCS: 36415; 80048; 85027

== ENCOUNTER → 2022-04-19 | Outpatient (CLI) | payer MEDICARE, OTHER, SELFPAY ==
--- NOTE | 2022-04-19 | BLB_PTH ---
PATIENT: AMANDA SHEEHAN LOC: DIETER U#:[id number] AGE/SX: 86/M ROOM: RE04/19/[address]: Dr. Armando Holguin MD : [id number] BED: DIS: 04/19/2022 SPEC #: [id number] RECD: 04/19/22 14:53 STATUS: LUCIE RELiang #: [id number] EVERARDO: 04/19/22 00:[address]: Armando Holguin DEPT: SURGICAL PATHOLOGY RECD BY: Martin Otoole ENTERED: 04/20/22 09:11 SP TYPE: TURB OTHR DR: Dr. Alison Aguirre, DO [facility] Tissues: Urinary bladder, NOS Procedures: Surgery Specimen Level V HEADER OPERATION: Not noted PRE-OP DIAGNOSIS: Bladder neoplasm TISSUE SUBMITTED: Bladder tumor MICROSCOPIC DIAGNOSIS Urinary bladder tumor, transurethral resection: Papillary urothelial carcinoma. See synoptic report below A M:sushila 04/21/22 COMMENT CANCER SYNOPTIC SUMMARY Procedure: TURBT Tumor Site: Not specified Histologic Type: Papillary Urothelial Carcinoma Histologic grade: Grade 1 Tumor configuration: Fragmented papillary Muscularis Propria Presence: Not present Lymphovascular Invasion: Not identified Tumor extension: Confined to urothelium Comment. The specimen contains thermal artifact. Reference is made to previous urinary bladder TUR ([id number]) in which grade 1 papillary carcinoma was identified. MICROSCOPIC DESCRIPTION Slides are reviewed. GROSS DESCRIPTION Received in fixative is one container labeled with the patient's name and designated bladder tumor. The specimen consists of multiple irregular fragments of pink-castellanos, rubbery, soft tissue that measure in aggregate 1.2 x 1.2 x 0.1 cm. The specimen is totally submitted in one cassette. /AM:sushila 04/21/2022 TC:0 CPT: 91271
== END | disposition home or self-care (01) ==
LOC: LABSPEC 15:00
PROVIDERS: PCP Internal Medicine; Visit Provider Urology
DX: D41.4 Neoplasm of uncertain behavior of bladder (principal)
CPT/HCPCS: 88307

== ENCOUNTER → 2022-07-02 | Outpatient (CLI) | payer MEDICARE, OTHER, SELFPAY ==
--- NOTE | 2022-07-03 07:06 | PFT ---
INTRODUCTION: The patient is an 86-year-old male that presents for pulmonary function studies secondary to a diagnosis of shortness of breath. Respiratory therapy reported good patient effort. Bronchodilators were used during testing. INTERPRETATION: Forced expiration spirometry demonstrates the presence of a mild large airways obstructive ventilatory defect. There was no significant response to aerosolized bronchodilators. Spirograms are of good quality but do not plateau indicating slow emptying of the lungs. Body plethysmography was performed and revealed a decreased TLC to 4.96 L, 82% of predicted, indicative of a mild restrictive ventilatory impairment. Diffusing capacity by single breath CO was within normal limits. IMPRESSION: Irreversible mild mixed ventilatory defect with preserved diffusing capacity.
== END | disposition home or self-care (01) ==
LOC: PSN 07:02
PROVIDERS: PCP Internal Medicine; Visit Provider Nurse Practitioner Acute Care
DX: R06.02 Shortness of breath (principal)
CPT/HCPCS: 94060; 94726; 94729

== ENCOUNTER → 2022-07-06 | Outpatient (CLI) | payer MEDICARE, OTHER, SELFPAY ==
[2022-07-06 08:15] VITALS: PULSE 73; PULSE 74; PULSE 80; PULSE 81; PULSE 82; PULSE 83; PULSE 89; O2SAT 93; O2SAT 94; O2SAT 95; O2SAT 96
--- NOTE | 2022-07-07 10:26 | WT_ITS ---
PSN 6 Minute Walk Test 6 Minute Walk Test 6 Minute Walk Test: 6 Minute Walk Test PSN:6-Minute Walk Test Start: 07/06/22 08:26 Freq: Status: Active Protocol: RESP.6MINW Document 07/06/22 08:15 [facility] (Rec: 07/06/22 08:29 [facility] [id number]) 6 Minute Walk Test Date Performed 07/06/22 Time Performed 08:15 Height 5 ft 9 in Weight: 100.698 kg Weight in Pounds 222.[address]: Anila, Assistive device used: None Pre-test Oxygen Delivery Method Room Air Pulse Ox (%) 95 Pulse Rate (60-100 beats/min) 73 Dyspnea Ceci Scale (0-10) 0.5 Exertion Ceci Scale (6-20) 6 1st minute Oxygen Delivery Method Room Air Pulse Ox (%) 94 Pulse Rate (60-100 beats/min) 81 2nd minute Oxygen Delivery Method Room Air Pulse Ox (%) 94 Pulse Rate (60-100 beats/min) 80 3rd minute Oxygen Delivery Method Room Air Pulse Ox (%) 93 Pulse Rate (60-100 beats/min) 82 4th minute Oxygen Delivery Method Room Air Pulse Ox (%) 95 Pulse Rate (60-100 beats/min) 81 5th minute Oxygen Delivery Method Room Air Pulse Ox (%) 95 Pulse Rate (60-100 beats/min) 83 6th minute Oxygen Delivery Method Room Air Pulse Ox (%) 95 Pulse Rate (60-100 beats/min) 89 Dyspnea Ceci Scale (0-10) 1 Exertion Ceci Scale (6-20) 12 Post-test Oxygen Delivery Method Room Air Pulse Ox (%) 96 Pulse Rate (60-100 beats/min) 74 Full Laps Walked 15 Partial Lap, Number of Tiles Walked 23 Total Distance Walked (ft) 908 Interpretation Interpretation: Patient was able to ambulate 980 feet over the course of 6 minutes on room air with no assistive devices or breaks. The patient did not experience significant tachycardia or desaturations during testing. These findings are consistent with a musculoskeletal limitation exercise tolerance. Recommendations Recommendations: No supplemental oxygen is indicated at this time.
== END | disposition home or self-care (01) ==
LOC: PSN 08:05
PROVIDERS: PCP Internal Medicine; Referring Provider Nurse Practitioner Acute Care; Visit Provider Nurse Practitioner Acute Care
DX: R06.02 Shortness of breath (principal)
CPT/HCPCS: 94618

== ENCOUNTER → 2023-01-05 | Outpatient (CLI) | payer MEDICARE, OTHER, SELFPAY ==
--- NOTE | 2023-01-05 12:38 | CDU_ITS ---
Reason For Study: Occlusion and Stenosis of Carotid Artery Rt. Velocities/BP Lt. Velocities/BP Prox CCA 83/13 cm/sec. Prox CCA 72/8 cm/sec. Mid CCA 90/9 cm/sec. Mid CCA 94/11 cm/sec. Dist CCA 76/11 cm/sec. Dist CCA 105/10 cm/sec. Prox ICA 147/22 cm/sec. Prox ICA 124/18 cm/sec. Mid ICA 118/18 cm/sec. Mid ICA 116/21 cm/sec. Dist ICA 60/13 cm/sec. Dist ICA 102/25 cm/sec. Rt. ICA/CCA = 1.63. Lt. ICA/CCA = 1.3. Prox ECA 85 cm/sec. Prox ECA 91 cm/sec. Rt. Vert. 33/7 cm/sec. Lt. Vert. 33/9 cm/sec. Right Extracranial There is heterogeneous, irregular atherosclerotic plaque noted in the right common carotid artery. There is heterogeneous, irregular atherosclerotic plaque noted in the right internal carotid artery. There is heterogeneous, irregular atherosclerotic plaque noted in the right external carotid artery. Antegrade flow is noted in the right vertebral artery. Left Extracranial There is heterogeneous, irregular atherosclerotic plaque noted in the left common carotid artery. There is heterogeneous, irregular atherosclerotic plaque noted in the left internal carotid artery. There is heterogeneous, irregular atherosclerotic plaque noted in the left external carotid artery. Antegrade flow is noted in the left vertebral artery. VL/Carotid Duplex Ultrasound Interpretation Summary Irregular calcific plaque at the proximal right internal carotid artery with 50 to 69% stenosis Less than 50% stenosis right external carotid artery Irregular calcific plaque at the proximal left internal carotid artery with les s than 50% stenosis but close to that range. Less than 50% stenosis left external carotid artery Patent and antegrade vertebral arteries bilaterally Ordering Physician: Alison Aguirre Referring Physician: Alison Aguirre Performed By: Maranda Cade, RDCS, RVT
== END | disposition home or self-care (01) ==
LOC: CVS 12:36
PROVIDERS: PCP Internal Medicine; Referring Provider Internal Medicine; Visit Provider Internal Medicine
DX: I65.23 Occlusion and stenosis of bilateral carotid arteries (principal)
CPT/HCPCS: 93880

== ENCOUNTER 2023-02-11 16:27 | Emergency (ER) | payer MEDICARE, OTHER, SELFPAY ==
[2023-02-11 16:30] VITALS: BP 147/105; PULSE 100; RESP 16; TEMP 36.8; O2SAT 98; BMI 31.6
--- NOTE | 2023-02-11 16:45 | EX.ED.DYSGE1 ---
HPI History of Present Illness Chief Complaint: Headache Informant: patient Onset/Context/Timing Onset: Days Narrative Narrative: Patient presents with 4 to 5-day history of odd sensation in his head. He states that he was sitting at [employer] eating when he got a sharp sudden pain to the posterior portion of his scalp. He states he laid his head down for a while and then felt as if he may vomit. His friend helped him ambulate to the restroom as he felt weak and as if he may pass out. He states symptom lasted about 15 to 20 minutes and then seemed to improve. He states he still just does not quite feel right in the head since this occurred. He was recently started on isosorbide and feels that that makes him lightheaded and dizzy. He stopped taking this medication yesterday. He states that the dizziness is somewhat improved today. He was seen by Dr. Bain today for follow-up for his sleep apnea. Because of his history of prior aneurysm clip and being on Eliquis Dr. Bain requested patient come in for a CT of the head. [facility] Medical History Abdominal pain Abnormal chest CT Alcohol use Atherosclerotic heart disease of [place] coronary artery without angina pectoris Back pain Bladder disease Blood disorder BMI 28.0-28.9,adult BPH (benign prostatic hyperplasia) CAD (coronary artery disease) Cancer Cardiology follow-up encounter Chronic bronchitis Chronic sinusitis COPD (chronic obstructive pulmonary disease) CPAP (continuous positive airway pressure) dependence Diabetes Diastolic dysfunction Difficulty chewing DVT (deep venous thrombosis) Encounter for long-term (current) use of other medications Essential hypertension Fatigue Former smoker Gastric reflux History of echocardiogram History of edema History of left heart catheterization (LHC) History of stress test Hypertension Hypertension IgG deficiency Immunodeficiency disorder Loss of hearing Obstructive sleep apnea Palpitations Prostate disease Pure hypercholesterolemia Restless legs Shortness of breath Shortness of breath on exertion Ventricular tachycardia Wears dentures Wears glasses Home Medications cholecalciferol (vitamin D3) 125 mcg (5,000 unit) disintegrating tablet 5,000 unit PO DAILY 03/05/19 [History Last Taken 11/10/21] guaifenesin 1,200 mg tablet, extended release 12 hr (Mucinex) 1,200 mg PO Q12H PRN COPD 04/29/21 [History Last Taken 11/10/21] omega 5-zct-vay-fish oil 900 mg-1,400 mg capsule,delayed release 1 cap PO DAILY 04/29/21 [History Last Taken 11/10/21] vitamin B complex 1 cap PO DAILY 04/29/21 [History Last Taken 11/10/21] eszopiclone 3 mg tablet 3 mg PO QHS PRN Sleep 05/26/21 [History Last Taken 11/10/21] omeprazole 40 mg capsule,delayed release 40 mg PO QODAY 05/26/21 [History Last Taken 11/10/21] potassium chloride 20 mEq tablet,extended release(part/cryst) 40 meq (2 x 20 mEq) PO DAILY #180 tabs 05/26/21 [Rx Last Taken 11/10/21] apixaban 5 mg tablet (Eliquis) 5 mg PO BID 07/22/21 [History Last Taken 11/07/21] ipratropium 0.5 mg-albuterol 3 mg (2.5 mg base)/3 mL nebulization soln 3 ml inhalation Q4H PRN PRN SOB &/OR WHEEZING #180 mL 07/27/21 [Rx Last Taken Unknown] ropinirole 4 mg tablet 4 mg PO QHS 11/26/21 [History Last Taken Unknown] amlodipine 10 mg tablet 10 mg PO DAILY 12/01/22 [History Last Taken Unknown] atenolol 100 mg tablet 100 mg PO DAILY 12/01/22 [History Last Taken Unknown] isosorbide mononitrate 30 mg tablet,extended release 24 hr 30 mg PO DAILY #30 tabs 12/01/22 [Rx Last Taken Unknown] losartan 100 mg tablet 100 mg PO DAILY 12/01/22 [History Last Taken Unknown] furosemide 20 mg tablet 20 mg PO DAILY #90 tabs 12/28/22 [Rx Last Taken Unknown] albuterol sulfate 2.5 mg/3 mL (0.083 %) solution for nebulization 2.5 mg inhalation BID PRN 02/01/23 [History Last Taken Unknown] budesonide 1 mg/2 mL suspension for nebulization 1 mg (2 mL) inhalation BID #360 mL 02/01/23 [Rx Last Taken Unknown] dutasteride 0.5 mg capsule (Avodart) 0.5 mg PO DAILY 02/01/23 [History Last Taken Unknown] pravastatin 20 mg tablet 20 mg PO DAILY 02/01/23 [History Last Taken Unknown] Allergy/AdvReac Type Severity Reaction Status Date / Time cocaine Allergy Anaphylaxis Verified 02/11/23 16:29 codeine Allergy Rash Verified 02/11/23 16:29 Penicillins Allergy Swelling Verified 02/11/23 16:29 Family History Mother Cancer Stomach Brother , 73 Years old Myocardial infarction Father Heart disease Surgical History History of cerebral aneurysm repair History of cholecystectomy History of rhinoplasty History of testicular surgery Hx of brain surgery Hx of surgical procedure Social History Smoking Status: Former smoker quit date: 03/14/83 second hand exposure: No alcohol intake: never substance use type: does not use caffeine: Yes what type of physical activity do you participate in: none ROS ROS ED Constitutional Constitutional ED: Denies chills or fever(s) Eyes Eyes: Denies discharge from eye(s) ENT ENT ED: Denies discharge from eye(s), rhinorrhea or sore throat Cardiovascular Cardiovascular: Denies chest pain or palpitations Respiratory/Chest Respiratory/Chest: Denies cough or dyspnea Gastrointestinal Gastrointestinal: Reports nausea; Denies abdominal pain or vomiting Genitourinary Genitourinary ED: Denies dysuria Musculoskeletal Musculoskeletal: Denies back pain or extremity pain Integumentary Denies Abrasions or rash Neurologic Neurologic: Reports headache(s) and weakness Psychiatric Psychiatric: Denies anxiety or depression Allergic/Immunologic Allergic/Immunologic ED: Denies lip swelling or urticaria EXAM Physical Exam Const Vital Signs: 02/11/23 16:30 02/11/23 17:12 Temperature 98.3 F 98.3 F Temperature Source Temporal Pulse Rate 100 Respiratory Rate 16 Respiratory Effort Normal Non-Labored Respiratory Depth Normal Respiratory Pattern Normal Blood Pressure 147/105 H Blood Pressure Mean 119 Pulse Ox 98 98 Oxygen Delivery Method Room Air Room Air Positive well nourished and well developed General Appearance ED: well developed HEENT Reports moist mucous membranes Eyes EOMs intact bilaterally Chest Wall inspection of chest normal and palpation of chest normal Resp normal respiratory effort and clear to auscultation bilaterally Cardio regular rate and regular rhythm GI non-tender Palpation: soft Extremity normal to inspection Neuro oriented x3 and no sensory deficits noted Motor Exam: strength 5/5 throughout Psych mental status grossly normal Skin no rashes or lesions noted MDM MDM MDM Narrative Medical decision making narrative: Patient was sent to CT for evaluation of his brain to rule out bleed, swelling, mass. Radiography Diagnostic Testing: Clinical Impression(s) from Imaging Studies Brain CT 02/11/23 17:14 IMPRESSION: Mild atrophy and periventricular white matter ischemic change. Postsurgical changes. No acute intracranial bleed Electronically Signed: Taj Valentin MD at 17:51 EST Reading Location ID and State: [facility] / [place] Tel , Service support , Treatment and Re-Evaluation :: CT scan of the head reveals mild atrophy and white matter ischemic changes. Postsurgical changes noted. No evidence of acute abnormality. Test results discussed with the patient. He is reassured with this and will follow-up with his primary care physician. Return instructions provided. Discharge Plan Triage Chief Complaint: Headache Other Complaint: Head Injury ED Provider: Mary Gallegos Dx/Rx/DC Orders Clinical Impression: Dizziness Instructions: ED Dizziness, Uncertain Cause Prescriptions: No Action cholecalciferol (vitamin D3) 5,000 unit tablet,disintegrating 5,000 unit PO DAILY omeprazole 40 mg capsule,delayed release(DR/EC) 40 mg PO QODAY Eliquis 5 mg tablet 5 mg PO BID Hold Instructions: Resume on 11/25/21. Patient Comments: LAST DOSE 11/07/21, STOP 3 DAYS PRIOR TO OR ipratropium-albuterol 0.5 mg-3 mg(2.5 mg base)/3 mL solution for nebulization 3 ml inhalation Q4H PRN PRN (Reason: SOB &/OR WHEEZING) Qty: 180 6RF eszopiclone 3 mg tablet 3 mg PO QHS PRN (Reason: Sleep) Patient Comments: TAKE 1 TABLET BY MOUTH AT BEDTIME NEEDED INSOMNIA potassium chloride 20 mEq tablet,ER particles/crystals 40 meq PO DAILY Qty: 180 3RF ropinirole 4 mg tablet 4 mg PO QHS Rx Instructions: administer 1-3 hours before bedtime amlodipine 10 mg tablet 10 mg PO DAILY atenolol 100 mg tablet 100 mg PO DAILY losartan 100 mg tablet 100 mg PO DAILY isosorbide mononitrate 30 mg tablet extended release 24 hr 30 mg PO DAILY Qty: 30 11RF albuterol sulfate 2.5 mg /3 mL (0.083 %) solution for nebulization 2.5 mg inhalation BID PRN pravastatin 20 mg tablet 20 mg PO DAILY dutasteride [Avodart] 0.5 mg capsule 0.5 mg PO DAILY vitamin B complex Capsule 1 cap PO DAILY Mucinex 1,200 mg Tablet Extended Release 12hr 1,200 mg PO Q12H PRN (Reason: COPD) omega 7-woj-eux-fish oil 900-1,400 mg Capsule,Delayed Release(Dr/Ec) 1 cap PO DAILY furosemide 20 mg tablet 20 mg PO DAILY Qty: 90 3RF budesonide 1 mg/2 mL suspension for nebulization 1 mg inhalation BID Qty: 360 3RF Primary Care Provider: Alison Aguirre Referrals: Alison Aguirre DO [Primary Care Provider] - 3-5 Days if not improving Disposition Disposition: Home, Self Care
[2023-02-11 17:12] VITALS: TEMP 36.8; O2SAT 98
--- NOTE | 2023-02-11 17:14 | CT_ITS ---
STUDY: CT BRAIN WITHOUT CONTRAST REASON FOR EXAM: Male, 87 years old. headache, H/O aneurysm repair RADIATION DOSAGE (If Supplied By Facility): CTDIvol = ( 44.99 ) mGy, DLP = ( 829.85 ) mGycm TECHNIQUE: Transaxial CT imaging of the brain was performed without administration of intravenous contrast material. Individualized dose optimization techniques were used for this CT. COMPARISON: No relevant priors. FINDINGS: Normal soft tissue structures. Postop change status post left temporal craniectomy and left parasellar aneurysm repair. Calcific plaquing cavernous carotids. Mild atrophy and periventricular white matter ischemic changes.. Normal basal ganglia and thalami. Normal brainstem. Normal cerebellum. There is no intracranial hemorrhage. There are no findings of an acute ischemic infarction. Normal visualized paranasal sinuses. Postsurgical changes of the orbits CT/Brain/Head without Contrast IMPRESSION: Mild atrophy and periventricular white matter ischemic change. Postsurgical changes. No acute intracranial bleed Electronically Signed: Taj Valentin MD at 17:51 EST Reading Location ID and State: [address] [place] [address] Tel , Service support ,
[2023-02-11 18:18] VITALS: BP 131/110; PULSE 68; RESP 20; O2SAT 95
== END 2023-02-11 18:25 | disposition home or self-care (01) ==
PROVIDERS: Emergency Provider Emergency Medicine; PCP Internal Medicine; Visit Provider Emergency Medicine
DX: R42 Dizziness and giddiness (principal); J44.9 Chronic obstructive pulmonary disease, unspecified; E11.9 Type 2 diabetes mellitus without complications; I25.10 Atherosclerotic heart disease of native coronary artery without angina pectoris; G47.33 Obstructive sleep apnea (adult) (pediatric); Z87.891 Personal history of nicotine dependence; Z86.718 Personal history of other venous thrombosis and embolism
CPT/HCPCS: 70450; 99283

== ENCOUNTER → 2023-10-17 | Outpatient (CLI) | payer MEDICARE, OTHER, SELFPAY ==
--- NOTE | 2023-10-17 17:30 | STRESSREP ---
Stress Test Report Pharmacologic myocardial perfusion stress test. 88-year-old man with a history of chest ache known coronary artery disease Resting EKG demonstrates sinus bradycardia with a rate of 57 bpm. Resting blood pressure is 148/72 mmHg. 0.4 mg of regadenoson was infused per usual protocol followed by rapid intravenous saline flush injection. Continuous EKG monitoring was performed. The maximum heart rate was 96 bpm which was 72% of max impacted heart rate the maximum workload was 1 metabolic equivalent. At rest there were no ST or T wave changes noted to suggest ischemia and at peak infusion nonspecific ST changes were noted which did not meet the criteria for ischemia. No clinical angina is noted. The final blood pressure was 150/72 mmHg. Myocardial perfusion protocol. 14.4 mCi of technetium 99m sestamibi was injected at rest. 0.4 mg of regadenoson was infused per usual protocol. At peak infusion 44.8 mCi of technetium 99m sestamibi was injected stress images were obtained stress and rest images were reconstructed and compared in the short axis vertical long and horizontal long axis. Gated images were also obtained. Perfusion SPECT analysis: Review of the stress images demonstrate normal uptake of tracer noted in all areas of the myocardium. The resting images similar demonstrated normal uptake of tracer noted in all areas of the myocardium. No areas of reversibility are noted to suggest ischemia and no previous infarct is noted. Gated SPECT analysis: The gated ejection fraction is 68. Conclusion: Normal pharmacologic myocardial perfusion stress test. Preserved ejection fraction.
== END | disposition home or self-care (01) ==
PROVIDERS: PCP Internal Medicine; Referring Provider Internal Medicine Cardiovascular Disease; Visit Provider Internal Medicine Cardiovascular Disease
DX: R07.9 Chest pain, unspecified (principal); R06.02 Shortness of breath
CPT/HCPCS: 78452; 93017; A9500; J2785

== ENCOUNTER → 2024-06-21 | Outpatient (CLI) | payer MEDICARE, OTHER, SELFPAY | END | disposition home or self-care (01) | LOC: LABSPEC 15:58 | PROVIDERS: PCP Internal Medicine; Referring Provider Urology; Visit Provider Urology | DX: N40.1 Benign prostatic hyperplasia with lower urinary tract symptoms (principal) | CPT/HCPCS: 87077; 87086; 87088 ==

== ENCOUNTER → 2024-12-05 | Outpatient (CLI) | payer MEDICARE, OTHER, SELFPAY ==
[2024-12-05 14:54] LABS: Hematocrit 39.7 % (40-54); Hemoglobin 13.8 g/dL (13.0-16.5); Immature Granulocytes Count 0.040 X10^3/uL (0.0-0.0); Mean Corp Hgb Conc 34.8 g/dL (32-36); Mean Corpuscular Volume 85.9 fL (80-94); Mean Platelet Vol. 8.8 fl (6.2-12.0); NRBC Flagged by Analyzer 0 % (0-5); Platelet Count 231 K/mm3 (150-450); RBC Distribution Width CV 14.8 % (11.6-14.6); RBC Distribution Width SD 46.7 fl (35.1-43.9); Red Blood Count 4.62 M/mm3 (4.6-6.2); White Blood Count 7.0 K/mm3 (4.4-11.0)
[2024-12-10 00:07] LABS: Bluegrass, Kentucky <0.10 kU/L (Class 0); Cat Hair/Dander, Standard <0.10 kU/L (Class 0); Dog Epithelia <0.10 kU/L (Class 0); Elm, American White <0.10 kU/L (Class 0); Oak, White <0.10 kU/L (Class 0); Plantain, English <0.10 kU/L (Class 0); Ragweed, Short/Common <0.10 kU/L (Class 0)
[2024-12-12 16:09] LABS: Aspirgillus flavus Negative (Neg:<1:1); Aspirgillus fumigatus Negative (Neg:<1:1); Aspirgillus niger Negative (Neg:<1:1)
== END | disposition home or self-care (01) ==
LOC: LAB 13:55
PROVIDERS: PCP Internal Medicine; Referring Provider Nurse Practitioner Acute Care; Visit Provider Nurse Practitioner Acute Care
DX: J30.9 Allergic rhinitis, unspecified (principal)
CPT/HCPCS: 36415; 82785; 85025; 86003; 86606

== ENCOUNTER → 2025-01-08 | Outpatient (CLI) | payer MEDICARE, OTHER, SELFPAY ==
--- NOTE | 2025-01-08 10:01 | CDU_ITS ---
Reason For Study Reason For Study: Visual changes, bruit Rt. Velocities/BP Lt. Velocities/BP Prox CCA 97.1/11.3 cm/sec. Prox CCA 113.8/7.9 cm/sec. Mid CCA 101.4/9.1 cm/sec. Mid CCA 72.8/9 cm/sec. Dist CCA 77.3/8 cm/sec. Dist CCA 71.6/7.7 cm/sec. Prox ICA 119.3/20.6 cm/sec. Prox ICA 75.3/15.1 cm/sec. Mid ICA 69.1/15.1 cm/sec. Mid ICA 55.6/12.6 cm/sec. Dist ICA 42.5/10.1 cm/sec. Dist ICA 81.4/16.3 cm/sec. Rt. ICA/CCA = 1.18. Lt. ICA/CCA = 1.12. Prox ECA 89.4 cm/sec. Prox ECA 74 cm/sec. Rt. Vert. 30.8/4.6 cm/sec. Lt. Vert. 33.3/8.8 cm/sec. Right Extracranial There is heterogeneous, irregular atherosclerotic plaque noted in the right common carotid artery. There is heterogeneous, irregular atherosclerotic plaque noted in the right internal carotid artery. There is intimal thickening but no significant atherosclerotic plaque noted in the right external carotid artery. Antegrade flow is noted in the right vertebral artery. Left Extracranial There is heterogeneous, irregular atherosclerotic plaque noted in the left common carotid artery. There is heterogeneous, irregular atherosclerotic plaque noted in the left internal carotid artery. There is heterogeneous, irregular atherosclerotic plaque noted in the left external carotid artery. Antegrade flow is noted in the left vertebral artery. Procedure Carotid Duplex 51601. This is a Carotid Duplex examination using B-mode, color flow and specral Doppler. Exam performed in department. VL/Carotid Duplex Ultrasound Interpretation Summary Mild (<50%) stenosis right extracranial internal carotid. Mild (<50%) stenosis left extracranial internal carotid. Patent and antegrade vertebrals bilaterally. Ordering Physician: Dale Aguilar Referring Physician: Alison Aguirre M.D. Performed By: Chiqui Perry RVT
== END | disposition home or self-care (01) ==
LOC: CVS 09:54
PROVIDERS: PCP Internal Medicine; Referring Provider Internal Medicine Cardiovascular Disease; Visit Provider Internal Medicine Cardiovascular Disease
DX: R09.89 Other specified symptoms and signs involving the circulatory and respiratory systems (principal)
CPT/HCPCS: 93880